=== PATIENT | male | born 1935 | race Caucasian/White ===

== ENCOUNTER → 2018-04-07 | Outpatient (CLI) | payer MEDICARE ==
[2018-04-07 08:27] LABS: ABSOLUTE EOSINOPHILS # (AUTO) 0.1 10^3/uL (0.0-0.6); ABSOLUTE LYMPHOCYTES (AUTO) 1.4 10^3/uL (0.5-4.7); ABSOLUTE MONOCYTES (AUTO) 0.5 10^3/uL (0.1-1.4); ABSOLUTE NEUT (AUTO) 4.4 10^3/uL (1.7-8.2); BASOPHILS % (AUTO) 0.5 % (0-2); HEMOGLOBIN 15.4 g/dL (13.5-17.0); LYMPHOCYTES % (AUTO) 22.2 % (13-45); MEAN CORPUSCULAR HEMOGLOBIN 28.4 pg (27.0-33.4); MEAN CORPUSCULAR HGB CONC 34.3 g/dL (32.0-36.0); MEAN CORPUSCULAR VOLUME 83 fl (80-97); MONOCYTES % (AUTO) 7.6 % (3-13); PLATELET COUNT 152 10^3/uL (150-450); RED BLOOD COUNT 5.44 10^6/uL (4.35-5.55); RED CELL DISTRIBUTION WIDTH 15.5 % (11.5-14.0); SEGMENTED NEUTROPHILS % (AUTO) 67.7 % (42-78); TOTAL CELLS COUNTED % (AUTO) 100 %; WHITE BLOOD COUNT 6.5 10^3/uL (4.0-10.5)
[2018-04-07 08:48] LABS: ALANINE AMINOTRANSFERASE 22 U/L (21-72); ALBUMIN 4.2 g/dL (3.5-5.0); ALKALINE PHOSPHATASE 63 U/L (38-126); ANION GAP 10 (5-19); ASPARTATE AMINO TRANSFERASE 14 U/L (17-59); BILIRUBIN,DIRECT 0.2 mg/dL (0.0-0.4); BILIRUBIN,TOTAL 0.6 mg/dL (0.2-1.3); BLOOD UREA NITROGEN 23 mg/dL (7-20); CALCIUM 9.7 mg/dL (8.4-10.2); CARBON DIOXIDE 30 mmol/L (22-30); CHLORIDE 101 mmol/L (98-107); CHOLESTEROL 215.08 mg/dL (0-200); GLUCOSE 137 mg/dL (75-110); POTASSIUM 4.4 mmol/L (3.6-5.0); SODIUM 141.3 mmol/L (137-145); TRIGLYCERIDES 131 mg/dL (<150)
[2018-04-07 09:00] LABS: DIRECT LDL 156 mg/dL (<100)
== END ==
LOC: OD 07:16
PROVIDERS: ATTEND Internal Medicine
DX: I10 Essential (primary) hypertension (principal); E11.9 Type 2 diabetes mellitus without complications; E78.00 Pure hypercholesterolemia, unspecified; Z79.899 Other long term (current) drug therapy
CPT/HCPCS: 36415; 80053; 80061; 85025

== ENCOUNTER 2018-10-29 16:51 | Emergency (ER) | payer MEDICARE ==
--- NOTE | 2018-10-29 17:11 | ER Document Report ---
ED Medical Screen (RME) - General Chief Complaint: Leg Swelling Stated Complaint: LEFT LEG SWELLING, PAIN Time Seen by Provider: 10/29/18 17:06 Mode of Arrival: Wheelchair Information source: Patient Notes: 83-year-old diabetic male presents emergency department with complaints of left lower leg swelling erythema warmth that started last night. He is not sure if he got bit by something. Denies fever and vomiting. Patient reports it hurts when he walks. I have greeted and performed a rapid initial assessment of this patient. A comprehensive ED assessment and evaluation of the patient, analysis of test results and completion of the medical decision making process will be conducted by additional ED providers. Dictation of this chart was performed using voice recognition software; therefore, there may be some unintended grammatical errors. TRAVEL OUTSIDE OF THE [place] IN LAST 30 DAYS: No - Related Data Allergies/Adverse Reactions: No Known Allergies Allergy (Verified 09/29/14 12:04) Past Medical History - Past Medical History Cardiac Medical History: Reports: Hx Hypertension Endocrine Medical History: Reports: Hx Diabetes Mellitus Type 2 Renal/ Medical History: Reports: Hx Benign Prostatic Hyperplasia Physical Exam - Vital signs Vitals: Temp Pulse Resp BP Pulse Ox 97.8 F 95 18 124/66 97 10/29/18 17:06 10/29/18 17:06 10/29/18 17:06 10/29/18 17:06 10/29/18 17:06 Course - Vital Signs Vital signs: Temp Pulse Resp BP Pulse Ox 97.8 F 95 18 124/66 97 10/29/18 17:06 10/29/18 17:06 10/29/18 17:06 10/29/18 17:06 10/29/18 17:06
[2018-10-29 17:48] LABS: ABSOLUTE EOSINOPHILS # (AUTO) 0.2 10^3/uL (0.0-0.6); BASOPHILS % (AUTO) 0.4 % (0-2); TOTAL CELLS COUNTED % (AUTO) 100 %
[2018-10-29 17:51] LABS: ABSOLUTE LYMPHOCYTES (AUTO) 0.9 10^3/uL (0.5-4.7); ABSOLUTE MONOCYTES (AUTO) 0.8 10^3/uL (0.1-1.4); ABSOLUTE NEUT (AUTO) 7.5 10^3/uL (1.7-8.2); EOSINOPHILS % (AUTO) 1.8 % (0-6); HEMOGLOBIN 14.4 g/dL (13.5-17.0); MEAN CORPUSCULAR HGB CONC 32.8 g/dL (32.0-36.0); MEAN CORPUSCULAR VOLUME 82 fl (80-97); PLATELET COUNT 130 10^3/uL (150-450); RED BLOOD COUNT 5.34 10^6/uL (4.35-5.55); RED CELL DISTRIBUTION WIDTH 16.9 % (11.5-14.0); SEGMENTED NEUTROPHILS % (AUTO) 79.8 % (42-78); WHITE BLOOD COUNT 9.4 10^3/uL (4.0-10.5)
[2018-10-29 17:54] LABS: APPEARANCE,URINE SLIGHTLY-CLOUDY; BILIRUBIN,URINE NEGATIVE (NEGATIVE); COLOR,URINE YELLOW; GLUCOSE, URINE NEGATIVE (NEGATIVE); KETONES,URINE NEGATIVE (NEGATIVE); LEUKOCYTE ESTERASE,URINE MODERATE (NEGATIVE); NITRITE,URINE NEGATIVE (NEGATIVE); PROTEIN,URINE NEGATIVE (NEGATIVE); URINE SPECIFIC GRAVITY 1.026
[2018-10-29 18:08] LABS: ALBUMIN 4.1 g/dL (3.5-5.0); ALKALINE PHOSPHATASE 76 U/L (38-126); ANION GAP 12 (5-19); ASPARTATE AMINO TRANSFERASE 21 U/L (17-59); BILIRUBIN,DIRECT 0.2 mg/dL (0.0-0.4); BILIRUBIN,TOTAL 0.7 mg/dL (0.2-1.3); BLOOD UREA NITROGEN 30 mg/dL (7-20); CALCIUM 9.4 mg/dL (8.4-10.2); CARBON DIOXIDE 27 mmol/L (22-30); CHLORIDE 102 mmol/L (98-107); GLUCOSE 165 mg/dL (75-110); POTASSIUM 3.8 mmol/L (3.6-5.0)
[2018-10-29] MEDS ORDERED: SULFAMETHOXAZOLE/TRIMETHOPRIM 800-160 MG TABLET PO ONE (23:12)
[2018-10-29] MEDS ORDERED: CEPHALEXIN 500 MG CAPSULE PO ONE (23:12)
--- NOTE | 2018-10-29 23:17 | ER Document Report ---
ED Extremity Problem, Lower - General Chief Complaint: Leg Swelling Stated Complaint: LEFT LEG SWELLING, PAIN Time Seen by Provider: 10/29/18 17:06 Mode of Arrival: Wheelchair Notes: RME NOTE: 83-year-old diabetic male presents emergency department with complaints of left lower leg swelling erythema warmth that started last night. He is not sure if he got bit by something. Denies fever and vomiting. Patient reports it hurts when he walks. MY HPI: Patient is a 83-year-old male presents to the emergency department for redness to his left lower anterior leg. Patient's denying any calf pain. He is denying any injury that he knows of. States he noticed the redness this morning. Patient's denying any fevers. Patient also admitting to urinary frequency. States he was treated for urinary tract infection approximately a month ago. States he is seeing a urologist in [place] sometimes next week. Patient's denying any injury or trauma to the left lower extremity. Bilateral lower extremities do appear swollen, pitting edema noted bilaterally, patient's denying any respiratory distress. Patient's denying any chest pain, abdominal pain. TRAVEL OUTSIDE OF THE [place] IN LAST 30 DAYS: No - Related Data Allergies/Adverse Reactions: No Known Allergies Allergy (Verified 09/29/14 12:04) Past Medical History - General Information source: Patient - Social History Smoking Status: Current Every Day Smoker Chew tobacco use (# tins/day): Yes Frequency of alcohol use: None Drug Abuse: None Family History: Other - compression fractures in low back Patient has suicidal ideation: No Patient has homicidal ideation: No - Past Medical History Cardiac Medical History: Reports: Hx Hypertension Endocrine Medical History: Reports: Hx Diabetes Mellitus Type 2 Renal/ Medical History: Reports: Hx Benign Prostatic Hyperplasia Review of Systems - Review of Systems Constitutional: denies: Fever EENT: No symptoms reported Cardiovascular: No symptoms reported Respiratory: No symptoms reported Gastrointestinal: No symptoms reported Genitourinary: No symptoms reported Male Genitourinary: No symptoms reported Musculoskeletal: See HPI Skin: See HPI Hematologic/Lymphatic: No symptoms reported Neurological/Psychological: No symptoms reported Physical Exam - Vital signs Vitals: Temp Pulse Resp BP Pulse Ox 97.8 F 95 18 124/66 97 10/29/18 17:06 10/29/18 17:06 10/29/18 17:06 10/29/18 17:06 10/29/18 17:06 - Notes Notes: GENERAL: Alert, interacts well. No acute distress. HEAD: Normocephalic, atraumatic. EYES: Pupils equal, round, and reactive to light. Extraocular movements intact. ENT: Oral mucosa moist, tongue midline. NECK: Full range of motion. Supple. Trachea midline. LUNGS: Clear to auscultation bilaterally, no wheezes, rales, or rhonchi. No respiratory distress. HEART: Regular rate and rhythm. No murmur ABDOMEN: Soft, non-tender. Non-distended. Bowel sounds present in all 4 quadrants. EXTREMITIES: Moves all 4 extremities spontaneously. normal radial and dorsalis pedis pulses bilaterally. No cyanosis. +1 pitting edema noted bilateral lower extremities to cath. Left anterior lower extremity is erythematous, no obvious fluctuance noted. 2 small scabs noted anterior quezada. no calf pain noted bilaterally. BACK: no cervical, thoracic, lumbar midline tenderness. No saddle anesthesia, normal distal neurovascular exam. NEUROLOGICAL: Alert and oriented x3. Normal speech. cranial nerves II through XII grossly intact PSYCH: Normal affect, normal mood. SKIN: Warm, dry, normal turgor. Course - Re-evaluation Re-evalutation: 10/29/18 23:15 Laboratory 10/29/18 10/29/18 10/29/18 17:28 17:28 17:28 WBC 9.4 RBC 5.34 Hgb 14.4 Hct 44.0 MCV 82 MCH 27.0 MCHC 32.8 RDW 16.9 H Plt Count 130 L Lymph % (Auto) 10.0 L [place] % (Auto) 8.0 Eos % (Auto) 1.8 Baso % (Auto) 0.4 Absolute Neuts (auto) 7.5 Absolute Lymphs (auto) 0.9 Absolute Monos (auto) 0.8 Absolute Eos (auto) 0.2 Absolute Basos (auto) 0.0 Seg Neutrophils % 79.8 H Sodium 140.5 Potassium 3.8 Chloride 102 Carbon Dioxide 27 Anion Gap 12 BUN 30 H Creatinine 0.72 Est GFR ( Amer) > 60 Est GFR (MDRD) Non-Af > 60 Glucose 165 H Calcium 9.4 Total Bilirubin 0.7 Direct Bilirubin 0.2 Neonat Total Bilirubin Not Reportable Neonat Direct Bilirubin Not Reportable Neonat Indirect Bili Not Reportable AST 21 ALT 19 Alkaline Phosphatase 76 Total Protein 7.0 Albumin 4.1 Urine Color YELLOW Urine Appearance SLIGHTLY-CLOUDY Urine pH 5.0 Ur Specific Elbert 1.026 Urine Protein NEGATIVE Urine Glucose (UA) NEGATIVE Urine Ketones NEGATIVE Urine Blood NEGATIVE Urine Nitrite NEGATIVE Urine Bilirubin NEGATIVE Urine Urobilinogen 2.0 H Ur Leukocyte Esterase MODERATE H Urine WBC (Auto) 29 Urine RBC (Auto) 5 Squamous Epi Cells Auto 1 Urine Mucus (Auto) OCC Urine Ascorbic Acid NEGATIVE Patient's urine does show signs of infection, sent for culture. We will treat with Keflex. Will add Bactrim to cover for potential MRSA infection in the left anterior quezada. Discussed close follow-up with primary care provider. Patient voices understanding, stable for discharge. This medical record was dictated with voice recognizing software. There may be grammatical, syntax errors that are unintended. - Vital Signs Vital signs: Temp Pulse Resp BP Pulse Ox 97.8 F 95 18 124/66 97 10/29/18 17:06 10/29/18 17:06 10/29/18 17:06 10/29/18 17:06 10/29/18 17:06 - Laboratory Result Diagrams: 10/29/18 17:28 10/29/18 17:28 Laboratory results interpreted by me: 10/29/18 10/29/18 10/29/18 17:28 17:28 17:28 RDW 16.9 H Plt Count 130 L Lymph % (Auto) 10.0 L Seg Neutrophils % 79.8 H BUN 30 H Glucose 165 H Urine Urobilinogen 2.0 H Ur Leukocyte Esterase MODERATE H Discharge - Discharge Clinical Impression: Urinary tract infection Qualifiers: Urinary tract infection type: acute cystitis Hematuria presence: without he maturia Qualified Code(s): N30.00 - Acute cystitis without hematuria Cellulitis Qualifiers: Site of cellulitis: extremity Site of cellulitis of extremity: lower extremity Laterality: left Qualified Code(s): L03.116 - Cellulitis of left lower limb Condition: Stable Disposition: HOME, SELF-CARE Instructions: Urinary Tract Infection ([facility]), Cephalexin ([facility]), Trimethoprim-S ulfa ([facility]), Cellulitis ([facility]) Additional Instructions: As we discussed you have been seen and treated in the emergency department for a skin infection in your left lower extremity. Please make sure you are taking antibiotics as prescribed. These antibiotics will also help treat a urinary tract infection. Please make sure you continue to follow-up with your urologist in [place] as well as your primary care provider locally. Please return to the emergency room for any further concerns. Prescriptions: Sulfamethoxazole/Trimethoprim [Bactrim Ds Tablet] 1 each PO BID 7 Days #14 tablet Cephalexin Monohydrate [Keflex 500 mg Capsule] 500 mg PO BID 7 Days #14 capsule
[2018-10-29 23:28] VITALS: BP 118/75
== END 2018-10-29 23:30 | disposition home or self-care (01) ==
LOC: ER 16:51
DX: L03.116 Cellulitis of left lower limb (principal); N30.00 Acute cystitis without hematuria; R60.0 Localized edema; E11.9 Type 2 diabetes mellitus without complications; I10 Essential (primary) hypertension; F17.200 Nicotine dependence, unspecified, uncomplicated
CPT/HCPCS: 36415; 87040; 87086; 85025; 80053; 81001; A9270 ×2; 99283

== ENCOUNTER → 2019-02-27 | Outpatient (CLI) | payer MEDICARE ==
--- NOTE | 2019-02-28 15:52 | XCELERA REPORT ---
[address] [address] Lower Extremity Arterial Evaluation Name: KAEL PAREDES Age: 84 yrs Gender: Male : 1935 Patient Status: Outpatient Patient Location: [facility] Study Date: 02/27/2019 02:57 PM Procedure: A color flow and duplex scan of the lower extremity arteries was performed bilaterally with velocity and waveform anaylsis. Ankle brachial indicies performed. Reason For Study: LT CALF ULCER Ordering Physician: DANNY FISCHER Performed By: Alex Tomas Measurements and Calculations Right Left SECURITY REP PSV 109.4 169.9 cm/sec Prox PFA PSV -107.5 -113.8cm/sec Prox SFA PSV 132.7 132.0 cm/sec Mid SFA PSV -87.7 -132.6cm/sec Dist SFA PSV -120.2 -112.5cm/sec Prox Pop A PSV 60.3 85.4 cm/sec Dist Pop A PSV -103.1 -108.7cm/sec Prox NATA PSV 99.7 cm/sec Mid NATA PSV 27.7 -44.1 cm/sec Dist NATA PSV 21.8 cm/sec Dist SALES SUPPORT ADVISOR PSV 108.1 122.6 cm/sec Dylan Pedis PSV 21.8 32.6 cm/sec Right Side Arterial Evaluation Normal velocity and triphasic waveforms noted from the Common Femoral artery to the Proximal Femoral. Biphasic with normal velocity in the Posterior Tibial. Monophasic with low velcotiy in the Anterior Tibial. Ankle Brachial index 1.17. Left Side Arterial Evaluation Normal velocity and triphasic waveforms noted from the Common Femoral artery to the Proximal Femoral. Biphasic with normal velocity, moderate spectral broadening in the Posterior Tibial. Monophasic with low velocity, retrograde flow in the Anterior Tibial. Ankle Brachial index 1.17. Interpretation Summary Mild hemodynamically significant lesions in the bilateral lower extremities, on duplex imaging, at rest. 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 Bilaterally. KEVYN's are normal, suggesting no significant arterial disease. This is discordant with the duplex findings. : DANNY FISCHER > Joshua Carreon
== END ==
LOC: SP 14:03
PROVIDERS: ATTEND Nurse Practitioner Family
DX: L97.212 Non-pressure chronic ulcer of right calf with fat layer exposed (principal); L97.222 Non-pressure chronic ulcer of left calf with fat layer exposed
CPT/HCPCS: 93922; 93925

== ENCOUNTER 2019-03-24 15:08 | Emergency (ER) | payer MEDICARE ==
--- NOTE | 2019-03-24 15:37 | ER Document Report ---
ED Medical Screen (RME) - General Chief Complaint: General Weakness Stated Complaint: WEAKNESS Time Seen by Provider: 03/24/19 15:25 Primary Care Provider: DANNY FISCHER TEST EXAMINER, TEST EXAMINER [Primary Care Provider] - Follow up as needed TRAVEL OUTSIDE OF THE [place] IN LAST 30 DAYS: No - HPI Notes: 03/24/19 15:36 Patient is an 84-year-old male with chronic medical conditions and currently being treated for leg wounds with a catheter in place presents with with concern of ongoing/worsening weakness over the past several months. states that his speech has changed and has become more slurred over the past month and patient will become more confused. Currently, patient is at baseline was mentation, but the speech has been relatively constant for the past month. states that it is hard to understand him at times. Denies drug allergies. He has been recently evaluated by his family doctor as well. No fever, chest pain, abdominal pain, vomiting/diarrhea. I have treated and performed a rapid initial assessment of this patient. A comprehensive ED assessment and evaluation of the patient, analysis of test results and completion of medical decision making process will be conducted by additional ED providers. PHYSICAL EXAMINATION: GENERAL: Well-appearing, well-nourished and in no acute distress. A&Ox4. Answers questions appropriately. Neuro: There is some noted slurred speech and difficulty understanding his speech. Otherwise face is symmetric, PERRLA, EOMI bilaterally. Motor and sensory intact otherwise. Strength equal bilaterally. - Related Data Allergies/Adverse Reactions: No Known Allergies Allergy (Verified 03/24/19 15:25) Past Medical History - Past Medical History Cardiac Medical History: Reports: Hx Hypertension Endocrine Medical History: Reports: Hx Diabetes Mellitus Type 2 Renal/ Medical History: Reports: Hx Benign Prostatic Hyperplasia Physical Exam - Vital signs Vitals: Temp Pulse Resp BP Pulse Ox 97.7 F 92 18 129/72 H 93 03/24/19 15:24 03/24/19 15:24 03/24/19 15:24 03/24/19 15:24 03/24/19 15:24 Course - Vital Signs Vital signs: Temp Pulse Resp BP Pulse Ox 97.7 F 92 18 129/72 H 93 03/24/19 15:24 03/24/19 15:24 03/24/19 15:24 03/24/19 15:24 03/24/19 15:24 Doctor's Discharge - Discharge Referrals: DANNY FISCHER TEST EXAMINER, TEST EXAMINER [Primary Care Provider] - Follow up as needed
--- NOTE | 2019-03-24 16:23 | RADIOLOGY REPORT (SQ) ---
EXAM DESCRIPTION: CHEST 2 VIEWS COMPLETED DATE/TIME: 03/24/2019 3:56 pm REASON FOR STUDY: weakness COMPARISON: None. EXAM PARAMETERS: NUMBER OF VIEWS: Two views. TECHNIQUE: AP and lateral views of the chest were obtained. RADIATION DOSE: NA LIMITATIONS: none FINDINGS: LUNGS AND PLEURA: Low inspiratory lung volumes. The costophrenic sulci are blunted. Ther e is no consolidation or pneumothorax. MEDIASTINUM AND HILAR STRUCTURES: No mediastinal or hilar contour abnormality. HEART AND VASCULAR STRUCTURES: The cardiac silhouette is enlarged. BONES: No acute findings. HARDWARE: None in the chest. OTHER: No other finding. IMPRESSION: Cardiomegaly without pulmonary edema. The blunting of the costophrenic sulci could repr esent trace bilateral pleural effusions or chronic pleural thickening. TECHNICAL DOCUMENTATION: JOB ID: [id number] 2010 [employer]- All Rights Reserved Reading location - IP/workstation name: [email or web address]
--- NOTE | 2019-03-24 16:27 | RADIOLOGY REPORT (SQ) ---
EXAM DESCRIPTION: CT HEAD WITHOUT COMPLETED DATE/TIME: 03/24/2019 4:09 pm REASON FOR STUDY: changes in speech, weakness COMPARISON: None. TECHNIQUE: Axial images acquired through the brain without intravenous contrast. Images reviewed wi th bone, brain and subdural windows. Additional sagittal and coronal reconstructions were generated. Images stored on PACS. All CT scanners at this facility use dose modulation, iterative reconstruction, and/or weight based d osing when appropriate to reduce radiation dose to as low as reasonably achievable (ALARA). [facility]: Dose Right [facility]: CareDose [facility]: Dose Right [facility]: Teradose 4D [facility]: Pogoplug RADIATION DOSE: CT Rad equipment meets quality standard of care and radiation dose reduction techniq ues were employed. CTDIvol: 53.2 mGy. DLP: 1017 mGy-cm. LIMITATIONS: None. FINDINGS: There is diffuse age-appropriate cerebral and cerebellar volume loss. The caliber the concepción tricles is concordant with the degree of sulcation. The confluent areas of hypoattenuation within th e supratentorial periventricular and subcortical white matter could represent the sequela of chronic microvascular ischemia. There is no acute intracranial hemorrhage, vascular territorial infarct, ext ra-axial fluid collection, mass effect or midline shift. There is no effacement of the cerebral sulc i or basal subarachnoid cisterns. The hayes-white matter differentiation is preserved. The globes are aphakic. The orbits are intact. There is a probable mucous retention cyst within the left maxillary sinus. There is no calvarial fracture. IMPRESSION: No acute intracranial abnormality. EVIDENCE OF ACUTE STROKE: NO. COMMENT: Quality ID # [id number]: Final reports with documentation of one or more dose reduction techniques (e.g., Automated exposure control, adjustment of the mA and/or kV according to patient size, use of iterative reconstruction technique) TECHNICAL DOCUMENTATION: JOB ID: [id number] 2010 [employer]- All Rights Reserved Reading location - IP/workstation name: [email or web address]
[2019-03-24 16:51] LABS: ABSOLUTE EOSINOPHILS # (AUTO) 0.1 10^3/uL (0.0-0.6); ABSOLUTE MONOCYTES (AUTO) 0.9 10^3/uL (0.1-1.4); BASOPHILS % (AUTO) 0.5 % (0-2); HEMOGLOBIN 13.4 g/dL (13.5-17.0); MEAN CORPUSCULAR HEMOGLOBIN 28.1 pg (27.0-33.4); TOTAL CELLS COUNTED % (AUTO) 100 %
[2019-03-24 16:58] LABS: ABSOLUTE BASOPHILS # (AUTO) 0.1 10^3/uL (0.0-0.2); ABSOLUTE NEUT (AUTO) 7.9 10^3/uL (1.7-8.2); EOSINOPHILS % (AUTO) 1.4 % (0-6); HEMATOCRIT 40.8 % (37.9-51.0); LYMPHOCYTES % (AUTO) 9.7 % (13-45); MEAN CORPUSCULAR HGB CONC 32.8 g/dL (32.0-36.0); MEAN CORPUSCULAR VOLUME 86 fl (80-97); MONOCYTES % (AUTO) 9.2 % (3-13); PLATELET COUNT 254 10^3/uL (150-450); RED BLOOD COUNT 4.76 10^6/uL (4.35-5.55); RED CELL DISTRIBUTION WIDTH 16.8 % (11.5-14.0); SEGMENTED NEUTROPHILS % (AUTO) 79.2 % (42-78); WHITE BLOOD COUNT 9.9 10^3/uL (4.0-10.5)
[2019-03-24 17:10] LABS: ALBUMIN 3.8 g/dL (3.5-5.0); ALKALINE PHOSPHATASE 111 U/L (38-126); ANION GAP 11 (5-19); ASPARTATE AMINO TRANSFERASE 17 U/L (17-59); BILIRUBIN,DIRECT 0.6 mg/dL (0.0-0.4); BILIRUBIN,TOTAL 0.9 mg/dL (0.2-1.3); BLOOD UREA NITROGEN 41 mg/dL (7-20); CALCIUM 9.6 mg/dL (8.4-10.2); CARBON DIOXIDE 32 mmol/L (22-30); CHLORIDE 100 mmol/L (98-107); GLUCOSE 152 mg/dL (75-110); POTASSIUM 3.8 mmol/L (3.6-5.0); TOTAL PROTEIN 7.3 g/dL (6.3-8.2)
--- NOTE | 2019-03-24 20:25 | EKG REPORT ---
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
[2019-03-24 21:35] LABS: APPEARANCE,URINE CLOUDY; BILIRUBIN,URINE NEGATIVE (NEGATIVE); COLOR,URINE YELLOW; GLUCOSE, URINE NEGATIVE (NEGATIVE); KETONES,URINE 20 mg/dL (NEGATIVE); PROTEIN,URINE 100 mg/dL (NEGATIVE); TRIPLE PHOSPHATE CRYSTAL,URINE FEW /HPF; UROBILINOGEN,URINE NEGATIVE mg/dL (<2.0)
[2019-03-24] MEDS ORDERED: LEVOFLOXACIN 750 MG/D5W RTU 750 MG/150 ML RTUPB IV ONE (21:47)
--- NOTE | 2019-03-24 21:47 | ER Document Report ---
Entered by ABHILASH AMADOR SCRIBE 03/24/192112 Acting as scribe for:KAEL THORPE IV, MD ED Dizziness/Weakness - General Chief Complaint: General Weakness Stated Complaint: WEAKNESS Time Seen by Provider: 03/24/19 15:25 Primary Care Provider: DANNY FISCHER NP, DEVELOPMENT ANALYST [Primary Care Provider] - Follow up as needed Information source: Relative - Notes: This 84 year old male patient with a history of chronic medical conditions presents to the ED today with complaints of generalized weakness and increased shortness of breath with exertion for the past x3 months. at bedside states the patient has been sleeping all the time and would sit on the edge of the r ecliner with a look of confusion on his face. also reports slurred speech and that it is difficult to understand him at times. Patient is currently being treated for leg wounds and has a catheter in place. Patient denies fever, chest pain, abdominal pain, vomiting, or diarrhea. TRAVEL OUTSIDE OF THE [place] IN LAST 30 DAYS: No - Related Data Allergies/Adverse Reactions: No Known Allergies Allergy (Verified 03/24/19 15:25) Past Medical History - General Information source: Relative - , [facility] Records - Social History Smoking Status: Current Every Day Smoker Cigarette use (# per day): Yes Chew tobacco use (# tins/day): No Smoking Education Provided: No Family History: Reviewed & Not Pertinent, Other - compression fractures in low back Patient has suicidal ideation: No Patient has homicidal ideation: No - Past Medical History Cardiac Medical History: Reports: Hx Hypertension Endocrine Medical History: Reports: Hx Diabetes Mellitus Type 2 Renal/ Medical History: Reports: Hx Benign Prostatic Hyperplasia Review of Systems - Review of Systems Constitutional: See HPI, Weakness. denies: Fever EENT: No symptoms reported Cardiovascular: See HPI. denies: Chest pain Respiratory: See HPI, Short of breath Gastrointestinal: See HPI. denies: Abdominal pain, Diarrhea, Vomiting Genitourinary: No symptoms reported Male Genitourinary: No symptoms reported Musculoskeletal: No symptoms reported Skin: No symptoms reported Hematologic/Lymphatic: No symptoms reported Neurological/Psychological: See HPI, Confusion -: Yes All other systems reviewed and negative Physical Exam - Vital signs Vitals: Temp Pulse Resp BP Pulse Ox 97.7 F 92 18 129/72 H 93 03/24/19 15:24 03/24/19 15:24 03/24/19 15:24 03/24/19 15:24 03/24/19 15:24 - General General appearance: Alert - HEENT Head: Normocephalic, Atraumatic Eyes: Normal Pupils: PERRL - Respiratory Respiratory status: Tachypnea Chest status: Nontender Breath sounds: Normal Chest palpation: Normal - Cardiovascular Rhythm: Regular Heart sounds: Normal auscultation Murmur: No - Abdominal Inspection: Normal Distension: No distension Bowel sounds: Normal Tenderness: Nontender - Abdomen soft Organomegaly: No organomegaly - Back Back: Normal, Nontender - Extremities General upper extremity: Normal inspection General lower extremity: Normal inspection - Neurological Neuro grossly intact: Yes - Psychological Associated symptoms: Normal affect, Normal mood - Skin Skin Temperature: Warm Skin Moisture: Dry Skin Color: Normal Course - Re-evaluation Re-evalutation: 03/24/19 22:40 Results of ED MSE discussed with patient and patient's significant other. All questions were answered prior to discharge. Emergency signs and symptoms, reasons to return to the emergency department discussed with patient and patient's significant other. - Vital Signs Vital signs: Temp Pulse Resp BP Pulse Ox 97.7 F 92 18 129/72 H 93 03/24/19 15:24 03/24/19 15:24 03/24/19 15:24 03/24/19 15:24 03/24/19 15:24 - Laboratory Result Diagrams: 03/24/19 14:29 03/24/19 14:29 Laboratory results interpreted by me: 03/24/19 03/24/19 03/24/19 14:29 14:29 14:29 Hgb 13.4 L RDW 16.8 H Lymph % (Auto) 9.7 L Seg Neutrophils % 79.2 H Carbon Dioxide 32 H BUN 41 H Glucose 152 H Direct Bilirubin 0.6 H NT-Pro-B Natriuret Pep 2150 H Urine Protein Urine Ketones Urine Blood Urine Nitrite (Reflex) Leukocyte Esterase Rfl 03/24/19 21:07 Hgb RDW Lymph % (Auto) Seg Neutrophils % Carbon Dioxide BUN Glucose Direct Bilirubin NT-Pro-B Natriuret Pep Urine Protein 100 H Urine Ketones 20 H Urine Blood SMALL H Urine Nitrite (Reflex) POSITIVE H Leukocyte Esterase Rfl LARGE H - EKG Interpretation by Me Additional EKG results interpreted by me: 03/24/19 22:41 EKG obtained on 03/24/2019 at 1620 hrs. was interpreted by this MD. Findings: Patient has a irregularly irregular rhythm that appears to be rate controlled. Rate is 99. Right bundle branch block is present. ST segments are nonspecific. Impression atrial fibrillation with controlled rate and nonspecific ST segments Discharge - Discharge Clinical Impression: UTI (urinary tract infection) due to urinary indwelling Baca catheter Qualifiers: Indwelling urinary catheter type: indwelling urethral catheter Encounter type: initial encounter Qualified Code(s): T83.511A - Infection and inflammatory reaction due to indwelling urethral catheter, initial encounter; N39.0 - Urinary tract infection, site not specified Condition: Good Disposition: HOME, SELF-CARE Instructions: Urinary Tract Infection ([facility]) Additional Instructions: Return to the Emergency Department without delay if any worse. HOME CARE INSTRUCTIONS & INFORMATION: Thank you for choosing us for your medical needs. We hope you're satisfied with the care you received. After you leave, you must properly care for your problem and, at the same time, observe its progress. Any condition can change. Some illnesses can change rapidly over hours or days. If your condition worsens, return to the Emergency Department or see your physician promptly. ABOUT YOUR X-RAYS AND EKG'S: If you had an EKG or X-rays taken, they have been read by the Emergency Physician. The X-rays and EKG's will also be read by a Radiologist or Technology Analyst within 24 hours. If discrepancies are noted, you will be notified by telephone. Please be certain the ED has a correct telephone number & address where you can be reached. Also, realize that some fractures or abnormalities do not show up on initial X-rays. If your symptoms continue, see your physician. ABOUT YOUR LABORATORY TEST: If you had laboratory tests, the results have been reviewed by the Emergency Physician. Some test results (for example cultures) may not be available for several days. You will be contacted if any test result shows you need additional treatment. Please be certain the ED has a correct telephone number and address where you can be reached. ABOUT YOUR MEDICATIONS: You will receive instructions on how to take your medicine on the prescription label you receive. Additional information may be provided by the Pharmacy. If you have questions afterwards, call the ED for clarification or further instructions. Some prescribed medications may cause drowsiness. Do not perform tasks such as driving a car or operating machinery without consulting your Pharmacist. If you feel you need a refill of pain medication, your condition will need re-evaluation. Please do not call for a refill of any medication. ABOUT YOUR SIGNATURE: Signature of this document acknowledges to followin. Understanding that you received emergency treatment and that you may be released before al medical problems are known or treated. Please be certain the ED has a correct phone number & address where you can be reached. 2. Acknowledgement that you will arrange for follow-up care as recommended. 3. Authorization for the Emergency Physician to provide information to your follow-up Physician in order to maximize your care. AT ANY TIME, IF YOUR SYMPTOMS CHANGE SIGNIFICANTLY OR WORSEN OR YOU DEVELOP NEW SYMPTOMS, RETURN TO THE EMERGENCY DEPARTMENT IMMEDIATELY FOR RE-EVALUATION. OUR GOAL IS TO PROVIDE EXCELLENT MEDICAL CARE! WE HOPE THAT WE HAVE MET YOUR EXPECTATIONS DURING YOUR EMERGENCY DEPARTMENT VISIT AND THAT YOU FEEL YOU HAVE RECEIVED EXCELLENT CARE! Urinary Tract Infection Your evaluation indicates that you have a urinary tract infection. This is due to germs growing in the bladder. This is a common problem. This infection usually responds quickly to antibiotics. Your antibiotic should be taken exactly as prescribed. Drink plenty of fluids -- three to four quarts a day. Occasionally, a bladder anesthetic will be prescribed to help stop the feeling of urgency until the antibiotic has a chance to clear the infection. This may cause your urine to be dark orange. Certain urine infections require a culture. If the doctor obtained a culture, the results will be back in two days. You should call to see if a change in treatment is needed. A repeat urinalysis after you finish treatment is often recommended. The physician will let you know if further testing is required. Call the doctor if you develop fever, chills, flank pain, inability to urinate, or blood in the urine. Prescriptions: Levofloxacin [Levaquin 750 mg Tablet] 750 mg PO DAILY #4 tablet Referrals: DANNY FISCHER DEVELOPMENT ANALYST, DEVELOPMENT ANALYST [Primary Care Provider] - Follow up as needed I personally performed the services described in the documentation, reviewed and edited the documentation which was dictated to the scribe in my presence, and it accurately records my words and actions.
[2019-03-25 00:10] VITALS: BP 136/99
== END 2019-03-25 00:05 | disposition home or self-care (01) ==
LOC: ER 15:08
DX: T83.511A Infection and inflammatory reaction due to indwelling urethral catheter, initial encounter (principal); N39.0 Urinary tract infection, site not specified; Y84.6 Urinary catheterization as the cause of abnormal reaction of the patient, or of later complication, without mention of misadventure at the time of the procedure; R53.1 Weakness; F17.210 Nicotine dependence, cigarettes, uncomplicated; I10 Essential (primary) hypertension; E11.9 Type 2 diabetes mellitus without complications
CPT/HCPCS: 93005; 36415; 87086; 85025; 87088; 80053; 81001; 83880; 71046; 70450; 93010; J1956; 87186; 96365; 99284

== ENCOUNTER 2019-03-28 11:32 | Inpatient (IN) | payer MEDICARE ==
[2019-03-28] MEDS ORDERED: IPRATROPIUM/ALBUTEROL 0.5-2.5 MG/3 ML AMPUL NEB ONE (11:59)
--- NOTE | 2019-03-28 12:08 | ER Document Report ---
ED General - General Stated Complaint: ALTERED MENTAL STATUS Time Seen by Provider: 03/28/19 11:52 Primary Care Provider: DANNY FISCHER ENVIRONMENTAL STUDIES DEPARTMENT CHAIR, ENVIRONMENTAL STUDIES DEPARTMENT CHAIR [Primary Care Provider] - Follow up as needed Mode of Arrival: Medic Information source: Patient, Relative Cannot obtain history due to: Altered mental status TRAVEL OUTSIDE OF THE [place] IN LAST 30 DAYS: No - HPI Onset: Other - over the last 3 days Onset/Duration: Gradual Quality of pain: No pain Severity: Severe Pain Level: 0 Associated symptoms: Nonproductive cough, Shortness of breath, Weakness, Other - altered mental status Exacerbated by: Coughing, Deep breathing Relieved by: Denies Similar symptoms previously: No Recently seen / treated by doctor: Yes - Patient seen on 03/24/19 and diagnosed with a a UTI Notes: 84 year old male with a history of HTN, HLD, DM, GERD, Chronic Pain, Chronic Leg Wounds, BPH (has an indwelling Baca - last changed of month) brought in by EMS for altered mental status, shortness of breath, cough, hypoxia. The patient was noted to have chewing tobacco in his mouth and down his throat when EMS arrived. EMS removed some of the chewing tobacco prior to ER arrival but more was removed down here in the ER by nurse staffing. The patient was minimally responsive on ER arrival and became more responsive as his airway was cleared and suctioned by nursing. - Related Data Allergies/Adverse Reactions: No Known Allergies Allergy (Verified 03/28/19 12:53) Past Medical History - General Information source: Patient, Relative Cannot obtain history due to: Altered mental status - Social History Smoking Status: Current Every Day Smoker Chew tobacco use (# tins/day): Yes Frequency of alcohol use: Occasional Drug Abuse: None Lives with: Spouse/Significant other Family History: Reviewed & Not Pertinent, Other - compression fractures in low back Patient has suicidal ideation: No Patient has homicidal ideation: No - Past Medical History Cardiac Medical History: Reports: Hx Hypertension Endocrine Medical History: Reports: Hx Diabetes Mellitus Type 2 Renal/ Medical History: Reports: Hx Benign Prostatic Hyperplasia Review of Systems - Review of Systems Constitutional: Weakness, Recent illness - patient diagnosed with a UTI in 03/24/19 EENT: No symptoms reported Cardiovascular: No symptoms reported Respiratory: Short of breath, Wheezing Gastrointestinal: No symptoms reported Genitourinary: Other - patient has thick yellow fluid coming from his Baca Male Genitourinary: No symptoms reported Musculoskeletal: No symptoms reported Skin: Other - skin breakdown in groin region Hematologic/Lymphatic: No symptoms reported Neurological/Psychological: Other - altered mental status -: Yes All other systems reviewed and negative Physical Exam - Vital signs Vitals: Pulse Ox 93 03/28/19 11:36 - Notes Notes: GENERAL: Ill appearing, minimally responsive with increased work of breathing. HEAD: Atraumatic, normocephalic. EYES: Pupils equal round and reactive to light, extraocular movements intact, sclera anicteric, conjunctiva with bilateral purulent discharge ENT: Nares patent, oropharynx filled with chewing tobacco thick secreation. Overall his mouth looks rather dry however NECK: Normal range of motion, supple without lymphadenopathy or JVD. LUNGS: Decreased breath sounds on left. Normal breath sounds on right. No wheezes rales or rhonchi. HEART: Tachycardic normal rhythm without murmurs, rubs or gallops. ABDOMEN: Soft, nontender, normoactive bowel sounds. No guarding, no rebound. No masses appreciated. EXTREMITIES: Normal range of motion, no pitting or edema. No clubbing or cyanosis. NEUROLOGICAL: Patient is minimally responsive (only responds to painful stimuli). Patient can move all extremities. Patient can speak a few words when asked certain questions. PSYCH: Normal mood, normal affect. SKIN: Skin appears modeled and dry Course - Re-evaluation Re-evalutation: 03/28/19 12:25 The patient clearly aspirated on chewing tobacco and possibly his own thick secretions. Nursing removed as much chewing tobacco as they could and they also suctioned the patient. Patient's Sats came up with suctioning and patient became more repsonsive. Will hold off on Bipaping for now given he is more awake and less hypoxic. Dr. Goldman of the ICU was consulted due to the concern the patient may need an emergent Bronch. Dr. Glodman will see the patient in the ER. Patient has thick purulent urine in his. Will replace Baca to obtain a new sample for a UA and culture, will obtain blood cultures, and will empirically treat with Zosyn and Vanc to cover aspiration and UTI pathogens 03/28/19 13:56 The patient was found to have respiratory failure with hypercapnia. ICU attending requested the patient be intubated before admission since he will need an emergent Bronch and he would like to Bronch through the ET tube. Patient was therefore intubated at the bedside by me. Patient had thick secretions in his mouth and pieces of chewing tobacco which I suctioned out. Patient had an 8.0 ET tube placed by me and on the first attempt. Suctioning through the ET tube and with a lavage returned more thick secretions and chewing tobacco. Patient's BP dropped during intubation so 1L of NS was ordered. Patient still has not prodcued enough urine from his new Baca for a UA and Urine Culture but based on his previous Baca and Urine in the bag he no doubt will like like he has a UTI again. Patient had a urine culture from his last ER visit which grew out nearly muhammad sensitive organisms. - Vital Signs Vital signs: Temp Pulse Resp BP Pulse Ox 99.6 F 43 H 129/84 H 94 03/28/19 12:00 03/28/19 12:07 03/28/19 12:07 03/28/19 12:07 - Laboratory Result Diagrams: 03/28/19 11:45 03/28/19 11:45 Laboratory results interpreted by me: 03/28/19 03/28/19 03/28/19 11:45 11:45 11:45 WBC 11.8 H RDW 17.8 H Lymph % (Auto) 6.9 L Absolute Neuts (auto) 10.3 H Seg Neutrophils % 87.5 H PT 16.8 H Carbonic Acid ABG pH ABG pCO2 ABG pO2 ABG HCO3 ABG Total CO2 ABG O2 Saturation Sodium 147.6 H Carbon Dioxide 37 H BUN 49 H Glucose 184 H POC Glucose NT-Pro-B Natriuret Pep 03/28/19 03/28/19 03/28/19 11:45 12:15 12:57 WBC RDW Lymph % (Auto) Absolute Neuts (auto) Seg Neutrophils % PT Carbonic Acid 2.68 H ABG pH 7.23 L ABG pCO2 89.1 H* ABG pO2 70.8 L ABG HCO3 36.6 H ABG Total CO2 39.3 H ABG O2 Saturation 90.1 L Sodium Carbon Dioxide BUN Glucose POC Glucose 180 H NT-Pro-B Natriuret Pep 3830 H - Diagnostic Test Radiology reviewed: Image reviewed, Reports reviewed - EKG Interpretation by Me Rhythm: A.Fib [place]/QRS: Left axis deviation When compared to previous EKG there are: No significant change, Other - PVCs noted Procedures - Intubation Orotracheal Airway evaluation: Normal anatomy Mallampati Classification: Class 2 Medications: Etomidate, Succinylcholine Intubation method: Orotracheal Equipment used: Glidescope ETT size: 8.0 ETT secured at: Lips ETT secured at (cm): 24 Breath Sounds after Intubation: Equal End tidal CO2 confirmed: Yes Intubation Complications: No complications Critical Care Note - Critical Care Note Total time excluding time spent on procedures (mins): 52 Discharge - Discharge Clinical Impression: Acute respiratory failure with hypoxia and hypercarbia Aspiration into airway Qualifiers: Encounter type: initial encounter Qualified Code(s): T17.908A - Unspecified foreign body in respiratory tract, part unspecified causing other injury, initial encounter UTI (urinary tract infection) Qualifiers: Urinary tract infection type: site unspecified Hematuria presence: without hematuria Qualified Code(s): N39.0 - Urinary tract infection, site not specified Condition: Critical Disposition: ADMITTED INPATIENT Admitting Provider: Susi (Disability Services Coordinator) Unit Admitted: ICU Referrals: DANNY FISCHER ENVIRONMENTAL STUDIES DEPARTMENT CHAIR, ENVIRONMENTAL STUDIES DEPARTMENT CHAIR [Primary Care Provider] - Follow up as needed
[2019-03-28] MEDS ORDERED: PIPERACILLIN/TAZOBACTAM 3.375 GM VIAL IV ONE (12:18)
[2019-03-28] MEDS ORDERED: VANCOMYCIN HCL INJ 1000 MG VIAL IV ONE (12:18)
[2019-03-28 12:20] LABS: INTERNATIONAL RATION (INR) 1.35; PROTHROMBIN TIME 16.8 SEC (11.4-15.4)
[2019-03-28 12:22] LABS: ABSOLUTE LYMPHOCYTES (AUTO) 0.8 10^3/uL (0.5-4.7); ABSOLUTE MONOCYTES (AUTO) 0.6 10^3/uL (0.1-1.4); ABSOLUTE NEUT (AUTO) 10.3 10^3/uL (1.7-8.2); BASOPHILS % (AUTO) 0.3 % (0-2); HEMATOCRIT 46.3 % (37.9-51.0); LYMPHOCYTES % (AUTO) 6.9 % (13-45); MEAN CORPUSCULAR HEMOGLOBIN 28.2 pg (27.0-33.4); MEAN CORPUSCULAR HGB CONC 32.3 g/dL (32.0-36.0); MEAN CORPUSCULAR VOLUME 87 fl (80-97); MONOCYTES % (AUTO) 5.3 % (3-13); PLATELET COUNT 358 10^3/uL (150-450); RED CELL DISTRIBUTION WIDTH 17.8 % (11.5-14.0); SEGMENTED NEUTROPHILS % (AUTO) 87.5 % (42-78); TOTAL CELLS COUNTED % (AUTO) 100 %; WHITE BLOOD COUNT 11.8 10^3/uL (4.0-10.5)
[2019-03-28 12:33] LABS: ALBUMIN 3.9 g/dL (3.5-5.0); ALKALINE PHOSPHATASE 107 U/L (38-126); ANION GAP 10 (5-19); ASPARTATE AMINO TRANSFERASE 21 U/L (17-59); BILIRUBIN,DIRECT 0.4 mg/dL (0.0-0.4); BILIRUBIN,TOTAL 0.8 mg/dL (0.2-1.3); BLOOD UREA NITROGEN 49 mg/dL (7-20); CALCIUM 9.8 mg/dL (8.4-10.2); CARBON DIOXIDE 37 mmol/L (22-30); CHLORIDE 101 mmol/L (98-107); GLUCOSE 184 mg/dL (75-110); POTASSIUM 4.1 mmol/L (3.6-5.0); TOTAL PROTEIN 7.5 g/dL (6.3-8.2)
[2019-03-28 12:57] LABS: ARTERIAL BLOOD BASE EXCESS 5.4 mmol/L; ARTERIAL BLOOD FIO2 15L; ARTERIAL BLOOD H2CO3 2.68 mmol/L (1.05-1.35); ARTERIAL BLOOD HCO3 36.6 mmol/L (20-24); ARTERIAL BLOOD O2 SATURATION 90.1 % (94-98); ARTERIAL BLOOD PH 7.23 (7.35-7.45); ARTERIAL BLOOD PO2 70.8 mmHg (80-100); ARTERIAL BLOOD TOTAL CO2 39.3 mmol/L (23-27)
[2019-03-28] MEDS ORDERED: SUCCINYLCHOLINE CHLORIDE INJ 200 MG/10 ML VIAL ONE (13:00)
[2019-03-28 13:03] LABS: ARTERIAL BLOOD PCO2 89.1 mmHg (35-45)
--- NOTE | 2019-03-28 13:06 | RADIOLOGY REPORT (SQ) ---
EXAM DESCRIPTION: CHEST SINGLE VIEW COMPLETED DATE/TIME: 03/28/2019 12:20 pm REASON FOR STUDY: bed 19 sepsis protocol COMPARISON: 03/24/2019 EXAM PARAMETERS: NUMBER OF VIEWS: One view. TECHNIQUE: Single frontal radiographic view of the chest acquired. RADIATION DOSE: NA LIMITATIONS: None. FINDINGS: LUNGS AND PLEURA: There is no dense consolidation throughout the left lower lobe with trac e left pleural fluid. Findings are worrisome for pneumonia. Aspiration should be considered. Right lung grossly clear. No right pleural effusion. No right or left pneumothorax MEDIASTINUM AND HILAR STRUCTURES: No masses. Contour normal. HEART AND VASCULAR STRUCTURES: Stable massive cardiomegaly BONES: No acute findings. HARDWARE: None in the chest. OTHER: No other significant finding. IMPRESSION: Left lower lobe pneumonia. Possible trace left pleural effusion. Aspiration should be considered TECHNICAL DOCUMENTATION: JOB ID: [id number] 2010 [employer]- All Rights Reserved Reading location - IP/workstation name: [email or web address]
[2019-03-28] MEDS ORDERED: SUCCINYLCHOLINE CHLORIDE INJ 200 MG/10 ML VIAL IV ONE (13:26)
[2019-03-28] MEDS ORDERED: ETOMIDATE INJ/PF 20 MG/10 ML SDV IV ONE (13:26)
[2019-03-28] MEDS ORDERED: PROPOFOL 1,000 MG/100 ML INFUS..BTL IV PRN (13:37)
[2019-03-28] MEDS ORDERED: PROPOFOL INJ 200 MG/20 ML VIAL IV ONE (13:39)
[2019-03-28] MEDS ORDERED: NORMAL SALINE 1000 ML 1,000 ML IV ONE (13:54)
[2019-03-28] MEDS: PROPOFOL 1,000 MG/100 ML INFUS..BTL IV PRN ×3 (14:57→22:21)
[2019-03-28] MEDS: RINGERS SOLUTION,LACTATED 1,000 ML IV PRN (14:59)
[2019-03-28] MEDS ORDERED: ALBUMIN HUMAN 500 ML IV ONE (15:00)
[2019-03-28] MEDS: DEXTROSE 5%-WATER 250 ML with NOREPINEPHRINE BITARTRATE 4 MG IV PRN ×4 (15:10→22:21)
[2019-03-28 15:37] LABS: APPEARANCE,URINE CLEAR; BILIRUBIN,URINE NEGATIVE (NEGATIVE); COLOR,URINE YELLOW; GLUCOSE, URINE NEGATIVE (NEGATIVE); KETONES,URINE NEGATIVE (NEGATIVE); PROTEIN,URINE NEGATIVE (NEGATIVE); URINE SPECIFIC GRAVITY 1.005; UROBILINOGEN,URINE NEGATIVE mg/dL (<2.0)
[2019-03-28] MEDS: ALBUTEROL SULFATE 0.083% NEB 2.5 MG/3 ML AMPUL NEB SCH ×2 (15:57→20:06)
[2019-03-28] MEDS ORDERED: FENTANYL CITRATE INJ/PF 100 MCG/2 ML AMPUL ONE (16:02)
[2019-03-28 16:37] LABS: FREE T4 (FREE THYROXINE) 1.51 ng/dL (0.78-2.19)
[2019-03-28 16:51] LABS: THYROID STIMULATING HORMONE 1.12 uIU/mL (0.47-4.68)
[2019-03-28] MEDS ORDERED: PHARMACY COMMUNICATION ORDER MC NR (17:00)
--- NOTE | 2019-03-28 17:57 | RADIOLOGY REPORT (SQ) ---
EXAM DESCRIPTION: CHEST SINGLE VIEW COMPLETED DATE/TIME: 03/28/2019 5:43 pm REASON FOR STUDY: line and tube placement COMPARISON: 03/28/2019 EXAM PARAMETERS: NUMBER OF VIEWS: One view. TECHNIQUE: Single frontal radiographic view of the chest acquired. RADIATION DOSE: NA LIMITATIONS: None. FINDINGS: LUNGS AND PLEURA: Linear opacity in the left mid lung. Retrocardiac opacification. MEDIASTINUM AND HILAR STRUCTURES: No masses. Contour normal. HEART AND VASCULAR STRUCTURES: Cardiomegaly. No darci pulmonary edema. BONES: No acute findings. HARDWARE: Endotracheal tube has its tip 3 cm above the suki. A right internal jugular catheter has its tip in the superior vena cava. OTHER: No other significant finding. IMPRESSION: Tube and catheter placement as described. Cardiomegaly without darci pulmonary edema. Subsegmental atelectasis in the left mid lung. Airspace disease in left lower lobe, pneumonia versus atelectasis. TECHNICAL DOCUMENTATION: JOB ID: [id number] 2010 [employer]- All Rights Reserved Reading location - IP/workstation name: [email or web address]
[2019-03-28] MEDS ORDERED: INFLUENZA QUAD (6MOS+) 2019-20 VAC 0.5 ML SYR IM ONE (18:20)
[2019-03-28 18:22] LABS: URINE AMPHETAMINES SCREEN NEGATIVE; URINE BARBITURATES SCREEN NEGATIVE; URINE BENZODIAZEPINES SCREEN NEGATIVE; URINE COCAINE SCREEN NEGATIVE; URINE MARIJUANA (THC) SCREEN NEGATIVE; URINE METHADONE SCREEN NEGATIVE; URINE PHENCYCLIDINE SCREEN NEGATIVE
[2019-03-28] MEDS: CEFTRIAXONE 2 GM/D5W RTU 2 GM/50 ML RTUPB IV SCH (18:22)
[2019-03-28] MEDS: HEPARIN SOD (PORCINE) 5,000 UNIT/ML 1 ML VIAL SUBCUT SCH ×2 (18:23→21:20)
[2019-03-28] MEDS ORDERED: FENTANYL CITRATE INJ/PF 100 MCG/2 ML AMPUL IV ONE (18:30)
--- NOTE | 2019-03-28 18:52 | EKG REPORT ---
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
[2019-03-28] MEDS: FAMOTIDINE 20 MG TABLET NG SCH (21:18)
[2019-03-28 21:50] LABS: FLUID APPEARANCE HAZY; FLUID COLOR STRAW; FLUID SOURCE LUNG; FLUID TYPE BRONCHIAL WASH; FLUID VISCOSITY SLIGHTLY VISCOUS
[2019-03-28] MEDS ORDERED: FAMOTIDINE 20 MG TABLET PO SCH (22:00)
--- NOTE | 2019-03-28 22:46 | CRITICAL CARE ADMISSION REPORT ---
HPI Date:: 03/28/19 Time:: 15:46 Reason for ICU Reason:: Acute Hypoxic/Hypercarbic respiratory failure with aspiration of tobacco products HPI: 84-year-old white male with multiple complex past medical history presented to the emergency room with encephalopathy and confusion. Also dyspnea. History of HTN, HLD, DM, GERD, Chronic Pain, Chronic Leg Wounds, BPH (has an in dwelling Baca - last changed 1st of month). Seen in ED 4 days ago and placed on FQ for UTI. Brought in by EMS altered , shortness of breath, cough, hypoxia. The patient was noted to have chewing tobacco in his mouth and down his throat when EMS arrived. EMS removed some of the chewing tobacco prior to ER arrival but more was removed by ER staff. The patient was minimally responsive on arrival and became more responsive as his airway was cleared , however, this waxed and waned and he required intubation. He also became hypotensive requiring peripheral Levophed. X-ray shows near complete whiteout of the left lung. On my evaluation in both the emergency room and the ICU notable suction tobacco fragments were seen. Patient was brought over to the ICU with an improvement in his blood pressure. He required sedation secondary to significant agitation and his propofol requirements were increased. This necessitated a slightly higher dose of Levophed. An emergent bronchoscopy was done which showed significant mucus obstruction of the left mainstem and lower and upper bronchial segments. Significant amount of time was spent in suctioning and clearing all secondary and tertiary segments. Audibly there was no retained tobacco products. There was a mild laryngeal tear at the tip of the ET tube and the ET tube was pulled back away from the pericarinal area. Met with his who states that the patient has had a steady decline in his health. He does have a more sedentary lifestyle. He was seen recently in the emergency room and found to have a urinary tract infection and placed on fluoroquinolones. The Baca was not changed at the time but it was changed on this admission. Culture from that urinalysis is positive for 2 gram-negative organisms both sensitive to Rocephin. History obtained from:: , ED staff - Diagnosis/Plan (1) Aspiration into airway Qualifiers: Encounter type: initial encounter Qualified Code(s): T17.908A - Unspecified foreign body in respiratory tract, part unspecified causing other injury, initial encounter (2) Acute respiratory failure with hypoxia and hypercarbia Is this a current diagnosis for this admission?: Yes (3) Hypotension (arterial) Qualifiers: Hypotension type: unspecified hypotension type Qualified Code(s): I95.9 - Hypotension, unspecified Is this a current diagnosis for this admission?: Yes (4) Complicated urinary tract infection Is this a current diagnosis for this admission?: Yes (5) Dehydration Is this a current diagnosis for this admission?: Yes (6) Mucus plugging of bronchi Is this a current diagnosis for this admission?: Yes (7) Chronic mucus hypersecretion, respiratory Is this a current diagnosis for this admission?: Yes (8) Atrial fibrillation with controlled ventricular response Is this a current diagnosis for this admission?: Yes - . Plan Summary: Patient will be admitted to the ICU and bronchoscopy done quickly to clear secretions and evaluate for foreign body. Placed central access to allow for appropriate Levophed dosing replacing fluid deficits. Send bronch specimens Etiology of mucus obstruction differential Discuss code status with family Follow ABG Echocardiogram Past Medical History Cardiac Medical History: Reports: Hypertension Denies: Atrial Fibrillation Endocrine Medical History: Reports: Diabetes Mellitus Type 2 GI Medical History: Reports: Other - Liver masses? Past Surgical History Past Surgical History: Reports: Other - facial surgery for trauma Social/Family History - Social History Lives with: Spouse/Significant other Smoking Status: Current Every Day Smoker - Medication/Allergies Home Medications: Amlodipine/Atorvastatin [Amlodipine-Atorvast 2.5-10 mg] 1 each PO DAILY 03/28/19 Buspirone HCl 15 mg PO BID 03/28/19 Diclofenac Sodium [Voltaren 25 Mg Tablet] 25 mg PO BID 03/28/19 Furosemide [Lasix 40 mg Tablet] 40 mg PO DAILY 03/28/19 Gabapentin [Neurontin] 600 mg PO Q6 03/28/19 Hydrocodone/Acetaminophen [Hydrocodone-Acetamin 10-300 mg] 1 each PO QIDP PRN 03/28/19 Indapamide 1.25 mg PO DAILY 03/28/19 Levofloxacin [Levaquin 750 mg Tablet] 750 mg PO DAILY 03/28/19 Metformin HCl [Metformin HCl ER] 500 mg PO BIDBS 03/28/19 Omeprazole 40 mg PO DAILY 03/28/19 Rosuvastatin Calcium 5 mg PO DAILY 03/28/19 Tramadol HCl [Ultram 50 mg Tablet] 50 mg PO BIDP PRN 03/28/19 Allergies/Adverse Reactions: No Known Allergies Allergy (Verified 03/28/19 12:53) Review of Systems ROS unobtainable: Due to endotracheal tube, Due to mental status Physical Exam Vital Signs: Temp Pulse Resp BP Pulse Ox 99.6 F 20 100/83 100 03/28/19 12:00 03/28/19 15:20 03/28/19 15:20 03/28/19 15:20 Intake & Output 03/27/19 03/28/19 03/29/19 06:59 06:59 06:59 Intake Total 1002 Balance 1002 Weight 117.934 kg Weight/Height Weight 117.934 kg Height 5 ft 9 in General appearance: PRESENT: no acute distress, disheveled, morbidly obese Exam: Intubated, elderly nontoxic ill-appearing 84-year-old male adequately sedated. Eye exam: PRESENT: conjunctival injection, PERRLA. ABSENT: nystagmus, scleral icterus Mouth exam: PRESENT: dry mucosa, tongue midline, other - Discolored tongue from tobacco Teeth exam: PRESENT: edentulous Neck exam: ABSENT: carotid bruit, JVD, lymphadenopathy, thyromegaly, tracheal deviation Respiratory exam: PRESENT: clear to auscultation lisa. ABSENT: accessory muscle use, rales, rhonchi, wheezes Cardiovascular exam: PRESENT: irregular rhythm, +S1, +S2. ABSENT: tachycardia Pulses: ABSENT: +1 pedal pulses bilateral GI/Abdominal exam: PRESENT: normal bowel sounds, soft. ABSENT: ascites, distended, guarding, mass, organolmegaly, rebound, tenderness Gentrourinary exam: PRESENT: indwelling catheter Extremities exam: PRESENT: +1 edema, +2 edema, other - Has a Porsha boot on the right leg. Small dressing on the left lower anterior leg shows no active lesions but appears to have had previous abrasions and ulceration. Non- erythematous. Neurological exam: PRESENT: altered - Sedated on mechanical ventilation. With gentle reduction in sedation he is moving all extremities no focal deficits. Psychiatric exam: PRESENT: agitated Skin exam: PRESENT: other - Previous ulceration in the lower extremities are apparently in various stages of healing.. ABSENT: erythema, rash Tubes/Lines: PRESENT: Endotracheal Tube Laboratory/Radiographs Laboratory Results: 03/28/19 11:45 03/28/19 11:45 03/28/19 03/28/19 03/28/19 11:45 11:45 11:45 WBC 11.8 H RBC 5.30 Hgb 15.0 Hct 46.3 MCV 87 MCH 28.2 MCHC 32.3 RDW 17.8 H Plt Count 358 Seg Neutrophils % 87.5 H Carbonic Acid HCO3/H2CO3 Ratio ABG pH ABG pCO2 ABG pO2 ABG HCO3 ABG O2 Saturation ABG Base Excess FiO2 Sodium 147.6 H Potassium 4.1 Chloride 101 Carbon Dioxide 37 H Anion Gap 10 BUN 49 H Creatinine 1.12 Est GFR ( Amer) > 60 Glucose 184 H Lactic Acid 2.0 Calcium 9.8 Total Bilirubin 0.8 AST 21 Alkaline Phosphatase 107 Total Protein 7.5 Albumin 3.9 Triglycerides Urine Color Urine Appearance Urine pH Ur Specific [place] Urine Protein Urine Glucose (UA) Urine Ketones Urine Blood Urine RBC (Auto) 03/28/19 03/28/19 03/28/19 11:45 12:15 14:10 WBC RBC Hgb Hct MCV MCH MCHC RDW Plt Count Seg Neutrophils % Carbonic Acid 2.68 H HCO3/H2CO3 Ratio 13:1 ABG pH 7.23 L ABG pCO2 89.1 H* ABG pO2 70.8 L ABG HCO3 36.6 H ABG O2 Saturation 90.1 L ABG Base Excess 5.4 FiO2 15L Sodium Potassium Chloride Carbon Dioxide Anion Gap BUN Creatinine Est GFR ( Amer) Glucose Lactic Acid Calcium Total Bilirubin AST Alkaline Phosphatase Total Protein Albumin Triglycerides 137 Urine Color YELLOW Urine Appearance CLEAR Urine pH 5.0 Ur Specific [place] 1.005 Urine Protein NEGATIVE Urine Glucose (UA) NEGATIVE Urine Ketones NEGATIVE Urine Blood MODERATE H Urine RBC (Auto) 4 03/28/19 11:45 NT-Pro-B Natriuret Pep 3830 H Impressions: Chest X-Ray 03/28/19 00:00 IMPRESSION: Left lower lobe pneumonia. Possible trace left pleural effusion. Aspiration should be considered All labs, radiographs, diagnostic studies and EKGs were personally reviewed: Yes In addition, reports of radiographic and diagnostic studies were read: Yes Critical Time Critical Time (minutes): 80 -: The care of a critically ill patient is dynamic. This note represents a static moment in the admission process. Orders and treatments may be given simultaneously and urgently, and time is not loss control representative of the treatment process. This patient requires Critical Care secondary to life threatening organ or limb dysfunction. Without Critical Care services, the patient is at risk for increased mortality and morbidity.
--- NOTE | 2019-03-28 22:49 | Operative Report ---
Bedside Procedure - History of Present Illness History of Present Illness: 84-year-old white male with multiple complex past medical history presented to the emergency room with encephalopathy and confusion. Also dyspnea. History of HTN, HLD, DM, GERD, Chronic Pain, Chronic Leg Wounds, BPH (has an indwelling Baca - last changed 1st of month). Seen in ED 4 days ago and placed on FQ for UTI. Brought in by EMS altered , shortness of breath, cough, hypoxia. The patient was noted to have chewing tobacco in his mouth and down his throat when EMS arrived. EMS removed some of the chewing tobacco prior to ER arrival but more was removed by ER staff. The patient was minimally responsive on arrival and became more responsive as his airway was cleared , however, this waxed and waned and he required intubation. He also became hypotensive requiring peripheral Levophed. X-ray shows near complete whiteout of the left lung. On my evaluation in both the emergency room and the ICU notable suction tobacco fragments were seen. Patient was brought over to the ICU with an improvement in his blood pressure. He required sedation secondary to significant agitation and his propofol requirements were increased. This necessitated a slightly higher dose of Levophed. An emergent bronchoscopy was done which showed significant mucus obstruction of the left mainstem and lower and upper bronchial segments. Significant amount of time was spent in suctioning and clearing all secondary and tertiary segments. Audibly there was no retained tobacco products. There was a mild laryngeal tear at the tip of the ET tube and the ET tube was pulled back away from the pericarinal area. Met with his who states that the patient has had a steady decline in his health. He does have a more sedentary lifestyle. He was seen recently in the emergency room and found to have a urinary tract infection and placed on fluoroquinolones. The Baca was not changed at the time but it was changed on this admission. Culture from that urinalysis is positive for 2 gram-negative organisms both sensitive to Rocephin. Indication for Procedure: Poor venous access with hypotension Date: 03/28/19 Provider: PARK SANTANA - Central Line Right Internal jugular Time completed: 16:00 Consent obtained: Yes Central line pre-insertion: Sterile PPE donned, Chloraprep applied, Sterile drapes applied Central line lumen type: Triple Anesthetic type: 1% Lidocaine Ultrasound guided: Yes CM at insertion site: 15 Line secured with sutures: Yes Central line post-insertion: Blood return from lumens, Biopatch applied, Sutured, Sterile dressing applied, Position confirmed w/ CXR Complications: No Notes: 03/28/19 22:48 US shows no pneumonthorax. Tip, on xray, at SVC junction
--- NOTE | 2019-03-28 22:54 | Operative Report ---
Bedside Procedure - History of Present Illness History of Present Illness: 84-year-old white male with multiple complex past medical history presented to the emergency room with encephalopathy and confusion. Also dyspnea. History of HTN, HLD, DM, GERD, Chronic Pain, Chronic Leg Wounds, BPH (has an indwelling Baca - last changed 1st of month). Seen in ED 4 days ago and placed on FQ for UTI. Brought in by EMS altered , shortness of breath, cough, hypoxia. The patient was noted to have chewing tobacco in his mouth and down his throat when EMS arrived. EMS removed some of the chewing tobacco prior to ER arrival but more was removed by ER staff. The patient was minimally responsive on arrival and became more responsive as his airway was cleared , however, this waxed and waned and he required intubation. He also became hypotensive requiring peripheral Levophed. X-ray shows near complete whiteout of the left lung. On my evaluation in both the emergency room and the ICU notable suction tobacco fragments were seen. Patient was brought over to the ICU with an improvement in his blood pressure. He required sedation secondary to significant agitation and his propofol requirements were increased. This necessitated a slightly higher dose of Levophed. An emergent bronchoscopy was done which showed significant mucus obstruction of the left mainstem and lower and upper bronchial segments. Significant amount of time was spent in suctioning and clearing all secondary and tertiary segments. Audibly there was no retained tobacco products. There was a mild laryngeal tear at the tip of the ET tube and the ET tube was pulled back away from the pericarinal area. Met with his who states that the patient has had a steady decline in his health. He does have a more sedentary lifestyle. He was seen recently in the emergency room and found to have a urinary tract infection and placed on fluoroquinolones. The Baca was not changed at the time but it was changed on this admission. Culture from that urinalysis is positive for 2 gram-negative organisms both sensitive to Rocephin. Procedure Preprocedure diagnosis: Aspiration of foreign substance Postprocedure diagnosis: Significant mucus obstruction, Left lung with no evidence of foreign substance aspiration Proceduralist: DO Susi [facility] Complications: None EBL: None Findings: Marked thick inspissated white mucus obstruction in the entire left main stem and second and tertiary bronchial segments. No foreign body (tobacco) or food products noted. Tip of ET tube just proximal to suki and showing small mucosal laceration which was nonbleeding. ET tube pulled back. Patient was identified secondary to ongoing critical care, chart check, name bracelet. Timeout was called patient was identified With an already present ET tube the bronchoscope was placed after patient received fentanyl and propofol for sedation. On entrance into the ET tube small mucosal laceration was noted in the anterior precarinal region. ET tube was pulled back because it appeared that the angle of the ET tube was causing more erosion. Next the bronchoscope was advanced into the left lung which was surprisingly found to have significant mucus obstruction of the mainstem bronchus and secondary and tertiary segments. All segments were lavaged and BAL was done as well. There did not appear to be any darci significant obstruction from mass and no endobronchial lesions. There was mild inflammatory changes. Specimens were sent for studies Patient tolerated procedure well there were no complications procedure excludes critical care time Indication for Procedure: Aspiration Date: 03/28/19 Provider: PARK SANTANA
[2019-03-29] MEDS: ALBUTEROL SULFATE 0.083% NEB 2.5 MG/3 ML AMPUL NEB SCH ×6 (00:41→20:36)
[2019-03-29] MEDS: RINGERS SOLUTION,LACTATED 1,000 ML IV PRN ×2 (01:22→11:56)
[2019-03-29] MEDS: PROPOFOL 1,000 MG/100 ML INFUS..BTL IV PRN ×2 (02:13→18:00)
[2019-03-29 03:59] LABS: ABSOLUTE MONOCYTES (AUTO) 0.8 10^3/uL (0.1-1.4); ABSOLUTE NEUT (AUTO) 6.7 10^3/uL (1.7-8.2); BASOPHILS % (AUTO) 0.2 % (0-2); EOSINOPHILS % (AUTO) 0.3 % (0-6); HEMATOCRIT 38.2 % (37.9-51.0); HEMOGLOBIN 12.6 g/dL (13.5-17.0); LYMPHOCYTES % (AUTO) 12.1 % (13-45); MEAN CORPUSCULAR HEMOGLOBIN 28.4 pg (27.0-33.4); MEAN CORPUSCULAR VOLUME 86 fl (80-97); MONOCYTES % (AUTO) 8.8 % (3-13); PLATELET COUNT 175 10^3/uL (150-450); RED BLOOD COUNT 4.44 10^6/uL (4.35-5.55); RED CELL DISTRIBUTION WIDTH 16.8 % (11.5-14.0); SEGMENTED NEUTROPHILS % (AUTO) 78.6 % (42-78); TOTAL CELLS COUNTED % (AUTO) 100 %; WHITE BLOOD COUNT 8.5 10^3/uL (4.0-10.5)
[2019-03-29 04:04] LABS: ALBUMIN 2.8 g/dL (3.5-5.0); ALKALINE PHOSPHATASE 68 U/L (38-126); ANION GAP 7 (5-19); ASPARTATE AMINO TRANSFERASE 15 U/L (17-59); BILIRUBIN,DIRECT 0.4 mg/dL (0.0-0.4); BILIRUBIN,TOTAL 0.8 mg/dL (0.2-1.3); BLOOD UREA NITROGEN 56 mg/dL (7-20); CALCIUM 8.8 mg/dL (8.4-10.2); CARBON DIOXIDE 33 mmol/L (22-30); CHLORIDE 103 mmol/L (98-107); GLUCOSE 191 mg/dL (75-110); POTASSIUM 3.2 mmol/L (3.6-5.0); TOTAL PROTEIN 5.3 g/dL (6.3-8.2); TRIGLYCERIDES 218 mg/dL (<150)
[2019-03-29 04:19] LABS: ARTERIAL BLOOD BASE EXCESS 6.4 mmol/L; ARTERIAL BLOOD H2CO3 1.18 mmol/L (1.05-1.35); ARTERIAL BLOOD O2 SATURATION 97.2 % (94-98); ARTERIAL BLOOD PCO2 39.3 mmHg (35-45); ARTERIAL BLOOD PO2 85.5 mmHg (80-100); ARTERIAL BLOOD TOTAL CO2 31.2 mmol/L (23-27)
[2019-03-29 04:20] LABS: ARTERIAL BLOOD FIO2 40%
[2019-03-29] MEDS ORDERED: DEXTROSE 50%-WATER 25 GM/50 ML DISP.SYRIN IV PRN ×2 (05:07)
[2019-03-29] MEDS ORDERED: DEXTROSE 40% GEL 15 GM TUBE PO PRN ×2 (05:07)
[2019-03-29] MEDS ORDERED: GLUCAGON,HUMAN RECOMB 1 MG INJ IM PRN (05:07)
[2019-03-29] MEDS: HEPARIN SOD (PORCINE) 5,000 UNIT/ML 1 ML VIAL SUBCUT SCH ×3 (05:49→21:34)
[2019-03-29] MEDS: INSULIN REG, HUMAN 100 UNIT/ML 3 ML VIAL (PYX) SUBCUT SCH ×4 (05:51→23:33)
[2019-03-29] MEDS: POTASSI CL 20 MEQ/50 ML RIDER 20 MEQ/50 ML RTUPB IV SCH ×2 (06:24→08:28)
--- NOTE | 2019-03-29 08:14 | RADIOLOGY REPORT (SQ) ---
EXAM DESCRIPTION: CHEST SINGLE VIEW COMPLETED DATE/TIME: 03/29/2019 6:31 am REASON FOR STUDY: aspiration COMPARISON: 03/28/2019 NUMBER OF VIEWS: One view. TECHNIQUE: Single frontal radiographic image of the chest acquired. LIMITATIONS: None. FINDINGS: LUNGS AND PLEURA: Focal atelectasis in the left midlung field is significantly improved. Persistent blunting of both costophrenic angles. MEDIASTINUM AND HILAR STRUCTURES: Stable heart size and mediastinal structures. HEART AND VASCULAR STRUCTURES: Stable appearance. SUPPORT DEVICES: Appropriate location without change. BONES: No acute findings. OTHER: No other significant finding. IMPRESSION: Minimal residual atelectasis in the left midlung field. Small effusions. Support lines and tubes remain in satisfactory position. TECHNICAL DOCUMENTATION: JOB ID: [id number] 2010 [employer]- All Rights Reserved Reading location - IP/workstation name: [email or web address]
[2019-03-29] MEDS: FAMOTIDINE 20 MG TABLET NG SCH ×2 (09:36→21:34)
--- NOTE | 2019-03-29 12:44 | CDI QUERY ---
CDI Query CDI Review: Dear Provider: To better reflect your patients severity of illness, morbidity, and resource utilization Please specify and document in the Progress Notes and Discharge Summary if you are monitoring / treating / evaluating any of the following conditions: Query Clinical indicators Aspiration pneumonia GNR pneumonia Unable to determine Other UTI due to indwelling catheter POA Gram negative UTI due to indwelling catheter POA Unable to determine Other Chest X-Ray 03/28/19 00:00 IMPRESSION: Left lower lobe pneumonia. Possible trace left pleural effusion. Aspiration should be considered Bronchial washings: Chlamydia pneumoniae WBC 11.8 Will replace Baca to obtain a new sample for a UA and culture, will obtain blo od cultures, and will empirically treat with Zosyn and Vanc to cover aspiration and UTI pathogens Abx: Rocephin 2 GM IV ED Note: BPH (has an indwelling Baca - last changed 1st of month) brought in by EMS for altered mental status, shortness of breath, cough, hypoxia Patient has thick purulent urine in his. Will replace Baca to obtain a new sample for a UA and culture Per Progress Note: Culture from that (previous) urinalysis is positive for 2 gram-negative organisms both sensitive to Rocephin. The terms probable, suspected, likely, possible or still to be ruled out may be used if you are unable to determine the exact nature of a condition. Thank you, Clinical Documentation Physician Advisors LUISA Richards RN, BSN RN Office [phone] Office [phone]
--- NOTE | 2019-03-29 12:45 | CDI QUERY ---
CDI Query CDI Review: Dear Provider: To better reflect your patients severity of illness, morbidity, and resource utilization Please specify and document in the Progress Notes and Discharge Summary if you are monitoring / treating / evaluating any of the following conditions: Query Clinical indicators Please specify the etiology of the Encephalopathy if known or expected due to : Metabolic encephalopathy Toxic encephalopathy Hypoxic encephalopathy Please clarify if the A-fib can be further specified: Parosysmal A-fib Persistent A-fib Permanent A-fib Undetermined Per H&P Admitted to ICU for: Acute Hypoxic/Hypercarbic respiratory failure with aspiration of tobacco products 84-year-old white male with multiple complex past medical history presented to the emergency room with encephalopathy and confusion. Also dyspnea. WBC 11.8 Sodium 147.6 Carbon dioxide 37 Lactic Acid 2.0 BNP 3830 Atrial fibrillation with controlled ventricular response Is this a current diagnosis for this admission?: Yes The terms probable, suspected, likely, possible or still to be ruled o ut may be used if you are unable to determine the exact nature of a condition. Thank you, Clinical Documentation Physician Advisors LUISA Richards RN, BSN RN Office [phone] Office [phone]
[2019-03-29 12:46] LABS: ANION GAP 6 (5-19); BLOOD UREA NITROGEN 55 mg/dL (7-20); CALCIUM 8.9 mg/dL (8.4-10.2); CARBON DIOXIDE 35 mmol/L (22-30); CHLORIDE 104 mmol/L (98-107); GLUCOSE 182 mg/dL (75-110); POTASSIUM 3.4 mmol/L (3.6-5.0)
[2019-03-29] MEDS ORDERED: WATER FOR INJECTION,STERILE 1,000 ML with SODIUM CHLORIDE 38.5 MEQ IV PRN ×2 (13:25)
[2019-03-29] MEDS ORDERED: POTASSIUM CHLORIDE 20 MEQ PACKET PO ONE (14:00)
[2019-03-29] MEDS: CEFTRIAXONE 2 GM/D5W RTU 2 GM/50 ML RTUPB IV SCH (17:59)
--- NOTE | 2019-03-29 20:01 | PDOC CRITICAL CARE PROG REPORT ---
General Date:: 03/29/19 ICU Day:: 2 Ventilator Day:: 2 Hospital Day:: 2 Resuscitation Status: Do Not Resuscitate Medical Power of Size Mixer: Daughters, Events in the past 12 to 24 Hours:: Bronchoscopy done revealing extensive mucous obstruction. Hypotension requiring vasopressor support--now discontinued. Started on Precedex for vent wean. SBT started. Review of systems relevant to events:: Levophed off. Low UOP. Critical Care Echo showed low EF and formal echo ordered. Noted Atrial fibrillation on admission with controlled rate Reason for ICU Addmission:: Acute Hypoxic/Hypercarbic respiratory failure with aspiration of tobacco products - Medications: Medications reviewed and adjusted accordingly: Yes Physical Exam Vital Signs: Temp Pulse Resp BP Pulse Ox 98.5 F 90 12 98/69 L 96 03/29/19 08:00 03/29/19 08:46 03/29/19 08:46 03/29/19 08:46 03/29/19 08:46 Intake & Output 03/28/19 03/29/19 03/30/19 06:59 06:59 06:59 Intake Total 2618 50 Output Total 305 75 Balance 2313 -25 Weight 98.1 kg Weight/Height Weight 98.1 kg Height 5 ft 7 in General appearance: PRESENT: no acute distress, morbidly obese, well-nourished Exam: Intubated, non-toxic, chronically and critically ill appearing, NAD Eye exam: PRESENT: conjunctival injection, PERRLA. ABSENT: nystagmus, scleral icterus Mouth exam: PRESENT: dry mucosa, neck supple Teeth exam: PRESENT: edentulous Neck exam: PRESENT: other - Right IJ CVC clean, dry, intact without discoloration. ABSENT: JVD, thyromegaly Respiratory exam: PRESENT: clear to auscultation lisa, unlabored, other - On PSV, Vte >500, no tachypnea. ABSENT: accessory muscle use, rales, rhonchi, tachypnea, wheezes Cardiovascular exam: PRESENT: irregular rhythm, +S1, +S2 Vascular exam: PRESENT: normal capillary refill. ABSENT: pallor GI/Abdominal exam: PRESENT: normal bowel sounds, soft. ABSENT: ascites, distended, guarding, mass, organolmegaly, rebound, tenderness Gentrourinary exam: PRESENT: indwelling catheter Extremities exam: PRESENT: pedal edema Neurological exam: PRESENT: altered - But responsive. Follows commands. No focal deficits. ABSENT: motor sensory deficit Psychiatric exam: PRESENT: appropriate affect. ABSENT: agitated, homicidal ideation, suicidal ideation Focused psych exam: ABSENT: psychomotor agitation, restlessness Skin exam: PRESENT: dry, intact, warm. ABSENT: cyanosis, mottled, pallor, rash Tubes/Lines: PRESENT: Endotracheal Tube, Central Line, Other - Fenton. All catheters placed 03.28.2019 including ETT Laboratory/Radiographs Laboratory Results: 03/29/19 03:36 03/29/19 03:36 03/28/19 03/28/19 03/28/19 11:44 11:44 11:45 WBC 11.8 H RBC 5.30 Hgb 15.0 Hct 46.3 MCV 87 MCH 28.2 MCHC 32.3 RDW 17.8 H Plt Count 358 Seg Neutrophils % 87.5 H Carbonic Acid HCO3/H2CO3 Ratio ABG pH ABG pCO2 ABG pO2 ABG HCO3 ABG O2 Saturation ABG Base Excess FiO2 Sodium Potassium Chloride Carbon Dioxide Anion Gap BUN Creatinine Est GFR ( Amer) Glucose Lactic Acid Calcium Phosphorus 5.0 H Magnesium 2.2 Total Bilirubin AST Alkaline Phosphatase Ammonia Total Protein Albumin Triglycerides TSH 1.12 Free T4 1.51 Urine Color Urine Appearance Urine pH Ur Specific Golden Urine Protein Urine Glucose (UA) Urine Ketones Urine Blood Urine RBC (Auto) Fluid Type Fluid Source Fluid Color Fluid Appearance Fluid Viscosity Fluid WBC Fluid RBC 03/28/19 03/28/19 03/28/19 11:45 11:45 11:45 WBC RBC Hgb Hct MCV MCH MCHC RDW Plt Count Seg Neutrophils % Carbonic Acid HCO3/H2CO3 Ratio ABG pH ABG pCO2 ABG pO2 ABG HCO3 ABG O2 Saturation ABG Base Excess FiO2 Sodium 147.6 H Potassium 4.1 Chloride 101 Carbon Dioxide 37 H Anion Gap 10 BUN 49 H Creatinine 1.12 Est GFR ( Amer) > 60 Glucose 184 H Lactic Acid 2.0 Calcium 9.8 Phosphorus Magnesium Total Bilirubin 0.8 AST 21 Alkaline Phosphatase 107 Ammonia Total Protein 7.5 Albumin 3.9 Triglycerides 137 TSH Free T4 Urine Color Urine Appearance Urine pH Ur Specific Golden Urine Protein Urine Glucose (UA) Urine Ketones Urine Blood Urine RBC (Auto) Fluid Type Fluid Source Fluid Color Fluid Appearance Fluid Viscosity Fluid WBC Fluid RBC 03/28/19 03/28/1903/28/20 12:15 14:10 15:25 WBC RBC Hgb Hct MCV MCH MCHC RDW Plt Count Seg Neutrophils % Carbonic Acid 2.68 H HCO3/H2CO3 Ratio 13:1 ABG pH 7.23 L ABG pCO2 89.1 H* ABG pO2 70.8 L ABG HCO3 36.6 H ABG O2 Saturation 90.1 L ABG Base Excess 5.4 FiO2 15L Sodium Potassium Chloride Carbon Dioxide Anion Gap BUN Creatinine Est GFR ( Amer) Glucose Lactic Acid 2.0 Calcium Phosphorus Magnesium Total Bilirubin AST Alkaline Phosphatase Ammonia Total Protein Albumin Triglycerides TSH Free T4 Urine Color YELLOW Urine Appearance CLEAR Urine pH 5.0 Ur Specific Golden 1.005 Urine Protein NEGATIVE Urine Glucose (UA) NEGATIVE Urine Ketones NEGATIVE Urine Blood MODERATE H Urine RBC (Auto) 4 Fluid Type Fluid Source Fluid Color Fluid Appearance Fluid Viscosity Fluid WBC Fluid RBC 03/28/19 03/28/19 03/28/19 16:55 17:00 17:30 WBC RBC Hgb Hct MCV MCH MCHC RDW Plt Count Seg Neutrophils % Carbonic Acid HCO3/H2CO3 Ratio ABG pH ABG pCO2 ABG pO2 ABG HCO3 ABG O2 Saturation ABG Base Excess FiO2 Sodium Potassium Chloride Carbon Dioxide Anion Gap BUN Creatinine Est GFR ( Amer) Glucose Lactic Acid 2.0 Calcium Phosphorus Magnesium Total Bilirubin AST Alkaline Phosphatase Ammonia < 8.7 L Total Protein Albumin Triglycerides TSH Free T4 Urine Color Urine Appearance Urine pH Ur Specific Golden Urine Protein Urine Glucose (UA) Urine Ketones Urine Blood Urine RBC (Auto) Fluid Type BRONCHIAL WASH Fluid Source LUNG Fluid Color STRAW Fluid Appearance HAZY Fluid Viscosity SLIGHTLY VISCOUS Fluid WBC 8 Fluid RBC 23 03/28/19 03/29/19 03/29/19 18:50 03:36 03:36 WBC 8.5 RBC 4.44 Hgb 12.6 L D Hct 38.2 MCV 86 MCH 28.4 MCHC 33.0 RDW 16.8 H Plt Count 175 Seg Neutrophils % 78.6 H Carbonic Acid HCO3/H2CO3 Ratio ABG pH ABG pCO2 ABG pO2 ABG HCO3 ABG O2 Saturation ABG Base Excess FiO2 Sodium 143.1 Potassium 3.2 L Chloride 103 Carbon Dioxide 33 H Anion Gap 7 BUN 56 H Creatinine 1.32 H Est GFR ( Amer) > 60 Glucose 191 H Lactic Acid 1.9 Calcium 8.8 Phosphorus Magnesium Total Bilirubin 0.8 AST 15 L Alkaline Phosphatase 68 Ammonia Total Protein 5.3 L Albumin 2.8 L Triglycerides 218 H TSH Free T4 Urine Color Urine Appearance Urine pH Ur Specific Golden Urine Protein Urine Glucose (UA) Urine Ketones Urine Blood Urine RBC (Auto) Fluid Type Fluid Source Fluid Color Fluid Appearance Fluid Viscosity Fluid WBC Fluid RBC 03/29/19 03:45 WBC RBC Hgb Hct MCV MCH MCHC RDW Plt Count Seg Neutrophils % Carbonic Acid 1.18 HCO3/H2CO3 Ratio 25:1 ABG pH 7.50 H ABG pCO2 39.3 ABG pO2 85.5 ABG HCO3 30.0 H ABG O2 Saturation 97.2 ABG Base Excess 6.4 FiO2 40% Sodium Potassium Chloride Carbon Dioxide Anion Gap BUN Creatinine Est GFR ( Amer) Glucose Lactic Acid Calcium Phosphorus Magnesium Total Bilirubin AST Alkaline Phosphatase Ammonia Total Protein Albumin Triglycerides TSH Free T4 Urine Color Urine Appearance Urine pH Ur Specific Golden Urine Protein Urine Glucose (UA) Urine Ketones Urine Blood Urine RBC (Auto) Fluid Type Fluid Source Fluid Color Fluid Appearance Fluid Viscosity Fluid WBC Fluid RBC 03/28/19 03/28/19 03/28/19 11:45 16:55 23:29 Troponin I 0.103 0.078 NT-Pro-B Natriuret Pep 3830 H 03/29/19 03:36 Troponin I 0.068 NT-Pro-B Natriuret Pep Impressions: Chest X-Ray 03/29/19 06:00 IMPRESSION: Minimal residual atelectasis in the left midlung field. Small effusions. Support lines and tubes remain in satisfactory position. All labs, radiographs, diagnostic studies and EKGs were personally reviewed: Yes In addition, reports of radiographic and diagnostic studies were read: Yes Assessment and Plan - Diagnosis (1) Sepsis with acute hypercapnic respiratory failure and septic shock Is this a current diagnosis for this admission?: Yes Plan: Klebsiella in urine (2) Sepsis due to gram-negative UTI Is this a current diagnosis for this admission?: Yes Plan: Present on admission due to chronic in-dwelling fenton catheter which was changed on admission (3) Aspiration into airway Qualifiers: Encounter type: initial encounter Qualified Code(s): T17.908A - Unspecified foreign body in respiratory tract, part unspecified causing other injury, initial encounter Is this a current diagnosis for this admission?: Yes (4) Acute respiratory failure with hypoxia and hypercarbia Is this a current diagnosis for this admission?: Yes (5) Hypotension (arterial) Qualifiers: Hypotension type: unspecified hypotension type Qualified Code(s): I95.9 - Hypotension, unspecified Is this a current diagnosis for this admission?: Yes (6) Complicated urinary tract infection Is this a current diagnosis for this admission?: Yes (7) Dehydration Is this a current diagnosis for this admission?: Yes (8) Mucus plugging of bronchi Is this a current diagnosis for this admission?: Yes (9) Chronic mucus hypersecretion, respiratory Is this a current diagnosis for this admission?: Yes (10) Atrial fibrillation with controlled ventricular response Is this a current diagnosis for this admission?: Yes Plan: Parosxysmal atrial fibrillation with controlled ventricular response (11) Chronic indwelling Fenton catheter Is this a current diagnosis for this admission?: Yes Plan: Fenton replaced 03.28.2019 (12) Acute kidney failure Qualifiers: Acute renal failure type: with acute tubular necrosis Qualified Code(s): N17.0 - Acute kidney failure with tubular necrosis Is this a current diagnosis for this admission?: Yes Plan Summary: 03.29.2019: Patient continues to improve and will attempt to liberate from ventilator. He has gram-negative UTI which is led to sepsis present on admission from a chronic indwelling Fenton catheter. This catheter has been exchanged and he is on appropriate antibiotics. Echo cardiogram has been completed and we are awaiting official reading. Need to consider digoxin given a wet reading of a poor EF in the face of atrial dilatation and paroxysmal A. fib. I am both hesitant and reticent to start anticoagulation given his limited ability to walk and risk of fall. Furthermore neither he nor the family want aggressive care. We will discuss this with them and should they seek anticoagulation as a treatment will need to discuss further risks and benefits. In addition to the above he has 1 set of blood cultures positive for gram positive organisms. We will continue to recheck and determine the specific organism. check cultures Precedex ventilator wean. Critical Time Critical Time (minutes): 35 Level of Care: ICU -: 1. The care of a critical patient is a dynamic process. This note is a insurance claims representative synopsis but static in nature. The timeframe for treatments given in order is not necessarily the actual time these treatments may have been done. 2. This patient requires critical care secondary to ongoing requirements for therapy not offered or safe outside the critical care environment. Transfer to a lower level of care will result in altered life or limb morbidity and mortality. 3. Multidisciplinary rounds completed. 4. ABCDE bundle addressed.
[2019-03-30] MEDS: ALBUTEROL SULFATE 0.083% NEB 2.5 MG/3 ML AMPUL NEB SCH ×6 (00:01→20:18)
[2019-03-30] MEDS: PROPOFOL 1,000 MG/100 ML INFUS..BTL IV PRN (02:58)
[2019-03-30] MEDS: INSULIN REG, HUMAN 100 UNIT/ML 3 ML VIAL (PYX) SUBCUT SCH ×3 (06:09→18:05)
[2019-03-30 06:16] LABS: ARTERIAL BLOOD BASE EXCESS 8.3 mmol/L; ARTERIAL BLOOD H2CO3 1.17 mmol/L (1.05-1.35); ARTERIAL BLOOD HCO3 31.6 mmol/L (20-24); ARTERIAL BLOOD PH 7.53 (7.35-7.45); ARTERIAL BLOOD PO2 61.9 mmHg (80-100); ARTERIAL BLOOD TOTAL CO2 32.8 mmol/L (23-27)
[2019-03-30 06:18] LABS: PHOSPHORUS 2.6 mg/dL (2.5-4.5)
[2019-03-30 06:20] LABS: ABSOLUTE LYMPHOCYTES (AUTO) 1.5 10^3/uL (0.5-4.7); ABSOLUTE MONOCYTES (AUTO) 0.8 10^3/uL (0.1-1.4); ABSOLUTE NEUT (AUTO) 6.7 10^3/uL (1.7-8.2); BASOPHILS % (AUTO) 0.1 % (0-2); EOSINOPHILS % (AUTO) 0.3 % (0-6); HEMATOCRIT 38.4 % (37.9-51.0); HEMOGLOBIN 12.6 g/dL (13.5-17.0); LYMPHOCYTES % (AUTO) 16.4 % (13-45); MEAN CORPUSCULAR HEMOGLOBIN 28.3 pg (27.0-33.4); MEAN CORPUSCULAR HGB CONC 32.8 g/dL (32.0-36.0); MEAN CORPUSCULAR VOLUME 86 fl (80-97); MONOCYTES % (AUTO) 9.2 % (3-13); PLATELET COUNT 166 10^3/uL (150-450); RED BLOOD COUNT 4.46 10^6/uL (4.35-5.55); TOTAL CELLS COUNTED % (AUTO) 100 %
[2019-03-30 06:29] LABS: ARTERIAL BLOOD FIO2 25%
[2019-03-30] MEDS: HEPARIN SOD (PORCINE) 5,000 UNIT/ML 1 ML VIAL SUBCUT SCH ×3 (06:39→21:13)
[2019-03-30] MEDS: FAMOTIDINE 20 MG TABLET NG SCH (09:01)
--- NOTE | 2019-03-30 09:14 | RADIOLOGY REPORT (SQ) ---
EXAM DESCRIPTION: CHEST SINGLE VIEW COMPLETED DATE/TIME: 03/30/2019 7:00 am REASON FOR STUDY: aspiration COMPARISON: 03/29/2019 NUMBER OF VIEWS: One view. TECHNIQUE: Single frontal radiographic image of the chest acquired. LIMITATIONS: None. FINDINGS: LUNGS AND PLEURA: Small left pleural effusion and associated airspace disease not signific antly changed. MEDIASTINUM AND HEART: Stable heart size and mediastinal structures. SUPPORT DEVICES: Appropriate location without change. BONY STRUCTURES: No acute findings. HARDWARE: None. OTHER: No other significant finding. IMPRESSION: STABLE APPEARANCE OF THE CHEST. SUPPORT DEVICES UNCHANGED. Reading location - IP/workstation name: [email or web address]
[2019-03-30] MEDS ORDERED: FUROSEMIDE INJ/PF 20 MG/2 ML SDV IV ONE (10:50)
[2019-03-30 15:34] LABS: ARTERIAL BLOOD BASE EXCESS 6.1 mmol/L; ARTERIAL BLOOD H2CO3 1.07 mmol/L (1.05-1.35); ARTERIAL BLOOD HCO3 28.9 mmol/L (20-24); ARTERIAL BLOOD O2 SATURATION 95.8 % (94-98); ARTERIAL BLOOD PCO2 35.6 mmHg (35-45); ARTERIAL BLOOD PH 7.53 (7.35-7.45); ARTERIAL BLOOD PO2 70.5 mmHg (80-100)
[2019-03-30 15:44] LABS: ARTERIAL BLOOD FIO2 25%
--- NOTE | 2019-03-30 16:21 | XCELERA REPORT ---
[address] [address] Transthoracic Echocardiogram Report Name: KAEL PAREDES Age: 84 yrs Gender: Male : 1935 Patient Status: Inpatient Patient Location: ICU^[id number] Study Date: 03/28/2019 08:12 PM Height: 67 in Weight: 211 lb BSA: 2.1 m2 Procedure: A two-dimensional transthoracic echocardiogram with color flow and Doppler was performed. Study Quality: Poor. The study was technically limited with all images being suboptimal in quality. Reason For Study: cardiomyopathy History: cardiomyopathy. Ordering Physician: PARK SANTANA Performed By: Yadira Mendoza Interpretation Summary The left ventricle is mildly dilated. There is mild to moderate concentric left ventricular hypertrophy. LV EF is 25% to 30% Left ventricular systolic function is severely reduced. LV diastolic function could not be adequately assessed. There is severe global hypokinesis of the left ventricle. There is no thrombus. Cannot assess ASD,VSD , or PFO. The right ventricle is not well visualized secondary to technical limitations The right atrium is mildly dilated. Mild to moderate LA enlargement. There is no evidence of mitral valve prolapse. There is no vegetation seen on the mitral valve. There is no mitral valve stenosis. There is a trace amount of mitral regurgitation There is no aortic valvular vegetation. There is mild aortic stenosis There is a peak gradient of 16.2 mm of HG , and a Mean Gradient of 9.2 mm of Hg. No aortic regurgitation is present. There is no tricuspid stenosis. There is a trace amount of tricuspid regurgitation There is mild pulmonary hypertension by echo RVSP is 40 to 45 mm of Hg , with RA mean of 15 to 20 There is no pulmonic valvular stenosis. There is no pulmonic valvular regurgitation. The aortic root is normal size. The inferior vena cava appeared dilated and decreased < 50% with respiration (RAP 15-20 mmHg) There is no pericardial effusion. MMode/2D Measurements & Calculations RVDd: 3.1 cm LVIDd: 4.5 cm FS: 9.6 % Ao root diam: 3.2 cm IVSd: 1.6 cm LVIDs: 4.1 cm EDV(Teich): 92.8 ml Ao root area: 8.2 cm2 LVPWd: 1.3 cm ESV(Teich): 73.2 ml LA dimension: 4.4 cm EF(Teich): 21.2 % LVOT diam: 2.0 cm LVOT area: 3.2 cm2 Doppler Measurements & Calculations MV E max glenny: MV P1/2t max glenny: Ao V2 max: LV V1 max P.9 cm/sec 104.2 cm/sec 201.3 cm/sec 3.0 mmHg MV A max glenny: MV P1/2t: 63.9 msec Ao max PG: LV V1 mean P.1 cm/sec MVA(P1/2t): 3.4 cm2 16.2 mmHg 1.1 mmHg MV E/A: 1.7 MV dec slope: Ao V2 mean: LV V1 max: 147.0 cm/sec 85.2 cm/sec 477.8 cm/sec2 Ao mean PG: LV V1 mean: MV dec time: 0.18 sec 9.7 mmHg 49.5 cm/sec Ao V2 VTI: 38.3 cm LV V1 VTI: 11.5 cm BREANNE(I,D): 0.97 cm2 BREANNE(V,D): 1.4 cm2 SV(LVOT): 37.0 ml TV V2 max: PA V2 max: TR max glenny: 171.0 cm/sec 49.4 cm/sec 250.4 cm/sec TV max P.7 mmHg PA max PG: TR max P.97 mmHg 25.1 mmHg MV P1/2t-pr_phl: 63.9 msec Left Ventricle The left ventricle is mildly dilated. There is mild to moderate concentric left ventricular hypertrophy. LV EF is 25% to 30%. Left ventricular systolic function is severely reduced. LV diastolic function could not be adequately assessed. There is severe global hypokinesis of the left ventricle. There is no thrombus. Cannot assess ASD,VSD , or PFO. Right Ventricle The right ventricle is not well visualized secondary to technical limitations. Atria The right atrium is mildly dilated. Mild to moderate LA enlargement. Mitral Valve There is no evidence of mitral valve prolapse. There is no vegetation seen on the mitral valve. There is no mitral valve stenosis. There is a trace amount of mitral regurgitation. Aortic Valve There is no aortic valvular vegetation. There is mild aortic stenosis. There is a peak gradient of 16.2 mm of HG , and a Mean Gradient of 9.2 mm of Hg. There is no LVOT obstruction. No aortic regurgitation is present. Tricuspid Valve There is no tricuspid stenosis. There is a trace amount of tricuspid regurgitation. There is mild pulmonary hypertension by echo. RVSP is 40 to 45 mm of Hg , with RA mean of 15 to 20. Pulmonic Valve There is no pulmonic valvular stenosis. There is no pulmonic valvular regurgitation. Great Vessels The aortic root is normal size. The inferior vena cava appeared dilated and decreased < 50% with respiration (RAP 15-20 mmHg). Effusions There is no pericardial effusion. : PARK SANTANA Lakshmi
[2019-03-30] MEDS ORDERED: PHARMACY COMMUNICATION ORDER MC NR (17:30)
[2019-03-30] MEDS: CEFTRIAXONE 2 GM/D5W RTU 2 GM/50 ML RTUPB IV SCH (18:16)
[2019-03-30] MEDS ORDERED: DEXTROSE 40% GEL 15 GM TUBE NG PRN ×2 (18:30)
[2019-03-30] MEDS: DEXMEDETOMIDINE IN 0.9 % NACL 400 MCG/100 ML RTUPB IV PRN (21:12)
--- NOTE | 2019-03-30 23:27 | PDOC CRITICAL CARE PROG REPORT ---
General Date:: 03/30/19 ICU Day:: 3 Ventilator Day:: 3 Hospital Day:: 3 Resuscitation Status: Do Not Resuscitate Medical Power of Shrimp P[place] Laborer: Daughters, Events in the past 12 to 24 Hours:: : Hypoxia with movement. Starting diuresis. Bronchoscopy done revealing extensive mucous obstruction. Hypotension requiring vasopressor support--now discontinued. Started on Precedex for vent wean. SBT started. Review of systems relevant to events:: 03.30.2019: Attempt at weaning was thwarted by significant mucus which was suctioned from the ET tube. He was able to lift his head but concern for extensive mucus obstruction prevented liberation. He was started on percussion and drainage. 03.29.2019:Levophed off. Low UOP. Critical Care Echo showed low EF and formal echo ordered. Noted Atrial fibrillation on admission with controlled rate Reason for ICU Addmission:: Acute Hypoxic/Hypercarbic respiratory failure with aspiration of tobacco products - Medications: Medications reviewed and adjusted accordingly: Yes Sedation:: Precedex Physical Exam Vital Signs: Temp Pulse Resp BP Pulse Ox 98.9 F 94 15 113/71 95 03/30/19 08:00 03/30/19 10:00 03/30/19 10:03 03/30/19 10:03 03/30/19 10:03 Intake & Output 03/29/19 03/30/19 03/31/19 06:59 06:59 06:59 Intake Total 3168 1256 100 Output Total 305 1030 80 Balance 2863 226 20 Weight 98.1 kg 98.3 kg Weight/Height Weight 98.3 kg Height 5 ft 7 in General appearance: PRESENT: no acute distress, cooperative, well-developed, well-nourished Exam: Elderly nontoxic 84-year-old male no active distress. Eye exam: PRESENT: conjunctiva pink, EOMI, PERRLA. ABSENT: scleral icterus Mouth exam: PRESENT: moist Neck exam: ABSENT: JVD, lymphadenopathy Respiratory exam: PRESENT: clear to auscultation lisa. ABSENT: accessory muscle use, rales, rhonchi, wheezes Cardiovascular exam: PRESENT: irregular rhythm, +S1, +S2. ABSENT: tachycardia GI/Abdominal exam: PRESENT: normal bowel sounds, soft. ABSENT: ascites, distended, guarding, mass, organolmegaly, rebound, tenderness Rectal exam: PRESENT: deferred Gentrourinary exam: PRESENT: indwelling catheter Neurological exam: PRESENT: awake. ABSENT: motor sensory deficit - Follows commands Psychiatric exam: PRESENT: appropriate affect, normal mood. ABSENT: homicidal ideation, suicidal ideation Skin exam: PRESENT: dry, intact, warm. ABSENT: cyanosis, rash Tubes/Lines: PRESENT: Endotracheal Tube, Central Line - Clean and dry without erythema, Other - Baca-chronic. New replacement on admission Laboratory/Radiographs Laboratory Results: 03/30/19 04:05 03/29/19 12:00 03/29/19 03/30/19 03/30/19 12:00 04:05 04:05 WBC 9.0 RBC 4.46 Hgb 12.6 L Hct 38.4 MCV 86 MCH 28.3 MCHC 32.8 RDW 17.0 H Plt Count 166 Seg Neutrophils % 74.0 Carbonic Acid 1.17 HCO3/H2CO3 Ratio 27:1 ABG pH 7.53 H ABG pCO2 39.0 ABG pO2 61.9 L ABG HCO3 31.6 H ABG O2 Saturation 94.0 ABG Base Excess 8.3 FiO2 25% Sodium 144.7 Potassium 3.4 L Chloride 104 Carbon Dioxide 35 H Anion Gap 6 BUN 55 H Creatinine 1.31 H Est GFR ( Amer) > 60 Glucose 182 H Calcium 8.9 Phosphorus Magnesium 03/30/19 04:05 WBC RBC Hgb Hct MCV MCH MCHC RDW Plt Count Seg Neutrophils % Carbonic Acid HCO3/H2CO3 Ratio ABG pH ABG pCO2 ABG pO2 ABG HCO3 ABG O2 Saturation ABG Base Excess FiO2 Sodium Potassium Chloride Carbon Dioxide Anion Gap BUN Creatinine Est GFR ( Amer) Glucose Calcium Phosphorus 2.6 Magnesium 2.1 03/28/19 14:10 Clean Catch Midstream Urine Culture - Final NO GROWTH 2 DAYS 03/28/19 21:00 Catheterized Urine Urine Culture - Final NO GROWTH 2 DAYS 03/28/19 12:15 Blood Blood Culture (PCR) - Final Staphylococcus Species 03/28/19 03/28/19 03/28/19 11:45 16:55 23:29 Troponin I 0.103 0.078 NT-Pro-B Natriuret Pep 3830 H 03/29/19 03:36 Troponin I 0.068 NT-Pro-B Natriuret Pep Impressions: Chest X-Ray 03/30/19 06:00 IMPRESSION: STABLE APPEARANCE OF THE CHEST. SUPPORT DEVICES UNCHANGED. All labs, radiographs, diagnostic studies and EKGs were personally reviewed: Yes In addition, reports of radiographic and diagnostic studies were read: Yes Assessment and Plan - Diagnosis (1) Sepsis with acute hypercapnic respiratory failure and septic shock Is this a current diagnosis for this admission?: Yes (2) Sepsis due to gram-negative UTI Is this a current diagnosis for this admission?: Yes (3) Aspiration into airway Qualifiers: Encounter type: initial encounter Qualified Code(s): T17.908A - Unspecified foreign body in respiratory tract, part unspecified causing other injury, initial encounter Is this a current diagnosis for this admission?: Yes (4) Acute respiratory failure with hypoxia and hypercarbia Is this a current diagnosis for this admission?: Yes (5) Hypotension (arterial) Qualifiers: Hypotension type: unspecified hypotension type Qualified Code(s): I95.9 - Hypotension, unspecified Is this a current diagnosis for this admission?: Yes (6) Complicated urinary tract infection Is this a current diagnosis for this admission?: Yes (7) Dehydration Is this a current diagnosis for this admission?: Yes (8) Mucus plugging of bronchi Is this a current diagnosis for this admission?: Yes (9) Chronic mucus hypersecretion, respiratory Is this a current diagnosis for this admission?: Yes (10) Atrial fibrillation with controlled ventricular response Is this a current diagnosis for this admission?: Yes (11) Chronic indwelling Baca catheter Is this a current diagnosis for this admission?: Yes (12) Acute kidney failure Qualifiers: Acute renal failure type: with acute tubular necrosis Qualified Code(s): N17.0 - Acute kidney failure with tubular necrosis Is this a current diagnosis for this admission?: Yes Plan Summary: 03.30.2019: Attempts to wean were thwarted by excess mucus from the ET tube. Will perform chest percussion and drainage. We will also introduce Diamox for diuretic and reduction in pH affect. Patient is now following commands and his neurological discerns appear to have been improved. Continue supportive care including nutritional support. Does have persistent atrial fibrillation and I am concerned that this may lead to stroke and this octogenarian. Have added heparin but will need to have discussion with family regarding continued use of this if he has any concerns with safety. We will attempt to wean further in the morning. He does have a pleural effusion on the left that may need to be drained if he has difficulty weaning from the ventilator. Coarse heparin will need to be discontinued. 2: Patient continues to improve and will attempt to liberate from ventilator. He has gram-negative UTI which is led to sepsis present on admission from a chronic indwelling Baca catheter. This catheter has been exchanged and he is on appropriate antibiotics. Echo cardiogram has been completed and we are awaiting official reading. Need to consider digoxin given a wet reading of a poor EF in the face of atrial dilatation and paroxysmal A. fib. I am both hesitant and reticent to start anticoagulation given his limited ability to walk and risk of fall. Furthermore neither he nor the family want aggressive care. We will discuss this with them and should they seek anticoagulation as a treatment will need to discuss further risks and benefits. In addition to the above he has 1 set of blood cultures positive for gram positive organisms. We will continue to recheck and determine the specific organism. check cultures Precedex ventilator wean. Critical Time Critical Time (minutes): 50 Level of Care: ICU -: 1. The care of a critical patient is a dynamic process. This note is a insurance service representative synopsis but static in nature. The timeframe for treatments given in order is not necessarily the actual time these treatments may have been done. 2. This patient requires critical care secondary to ongoing requirements for therapy not offered or safe outside the critical care environment. Transfer to a lower level of care will result in altered life or limb morbidity and mortality. 3. Multidisciplinary rounds completed. 4. ABCDE bundle addressed.
[2019-03-30] MEDS ORDERED: HEPARIN SOD (PORCINE) 1,000 UNIT/ML 10 ML VIAL ONE (23:43)
[2019-03-30] MEDS ORDERED: ACETAZOLAMIDE SODIUM INJ 500 MG VIAL ONE (23:44)
[2019-03-30] MEDS: ACETAZOLAMIDE SODIUM INJ 500 MG VIAL IV SCH (23:49)
[2019-03-31] MEDS: HEPARIN SOD (PORCINE) 1,000 UNIT/ML 10 ML VIAL IV PRN ×2 (00:10→15:18)
[2019-03-31] MEDS: HEPARIN SODIUM,PORCINE/D5W 25,000 UNIT/250 ML RTUINJ IV PRN (00:11)
[2019-03-31] MEDS: ALBUTEROL SULFATE 0.083% NEB 2.5 MG/3 ML AMPUL NEB SCH ×6 (00:14→20:27)
[2019-03-31] MEDS: INSULIN REG, HUMAN 100 UNIT/ML 3 ML VIAL (PYX) SUBCUT SCH ×4 (00:31→18:25)
[2019-03-31] MEDS: DEXMEDETOMIDINE IN 0.9 % NACL 400 MCG/100 ML RTUPB IV PRN (03:08)
[2019-03-31 03:46] LABS: ABSOLUTE LYMPHOCYTES (AUTO) 0.8 10^3/uL (0.5-4.7); ABSOLUTE MONOCYTES (AUTO) 0.5 10^3/uL (0.1-1.4); ABSOLUTE NEUT (AUTO) 5.8 10^3/uL (1.7-8.2); BASOPHILS % (AUTO) 0.2 % (0-2); EOSINOPHILS % (AUTO) 0.5 % (0-6); HEMATOCRIT 39.1 % (37.9-51.0); HEMOGLOBIN 12.5 g/dL (13.5-17.0); LYMPHOCYTES % (AUTO) 10.6 % (13-45); MEAN CORPUSCULAR HEMOGLOBIN 27.9 pg (27.0-33.4); MEAN CORPUSCULAR HGB CONC 31.9 g/dL (32.0-36.0); MEAN CORPUSCULAR VOLUME 87 fl (80-97); MONOCYTES % (AUTO) 7.1 % (3-13); PLATELET COUNT 137 10^3/uL (150-450); RED BLOOD COUNT 4.48 10^6/uL (4.35-5.55); RED CELL DISTRIBUTION WIDTH 16.6 % (11.5-14.0); SEGMENTED NEUTROPHILS % (AUTO) 81.6 % (42-78); TOTAL CELLS COUNTED % (AUTO) 100 %; WHITE BLOOD COUNT 7.1 10^3/uL (4.0-10.5)
[2019-03-31 03:52] LABS: ARTERIAL BLOOD BASE EXCESS 7.6 mmol/L; ARTERIAL BLOOD HCO3 31.1 mmol/L (20-24); ARTERIAL BLOOD O2 SATURATION 95.1 % (94-98); ARTERIAL BLOOD PCO2 39.8 mmHg (35-45); ARTERIAL BLOOD PH 7.51 (7.35-7.45); ARTERIAL BLOOD TOTAL CO2 32.3 mmol/L (23-27)
[2019-03-31 03:53] LABS: ARTERIAL BLOOD FIO2 25%
[2019-03-31 04:23] LABS: ANION GAP 7 (5-19); BLOOD UREA NITROGEN 37 mg/dL (7-20); CALCIUM 8.7 mg/dL (8.4-10.2); CARBON DIOXIDE 35 mmol/L (22-30); CHLORIDE 109 mmol/L (98-107); GLUCOSE 216 mg/dL (75-110); PHOSPHORUS 3.6 mg/dL (2.5-4.5)
[2019-03-31 04:35] LABS: POTASSIUM 2.9 mmol/L (3.6-5.0)
[2019-03-31] MEDS ORDERED: ACETAZOLAMIDE SODIUM INJ 500 MG VIAL ONE (04:48)
--- NOTE | 2019-03-31 04:48 | RADIOLOGY REPORT (SQ) ---
CLINICAL HISTORY: atelectasis COMPARISON: 03/30/2019. TECHNIQUE: XR CHEST 1 VIEW 03/30/2019 5:30 PM CURATOR FINDINGS: The heart is enlarged. There is mild left basilar airspace disease. There is a small left pleural effusion. There is no pneumothorax. There are no acute osseous findings. Endotracheal tube, nasogastric tube and right central line are unchanged. IMPRESSION: No change.
[2019-03-31] MEDS ORDERED: POTASSIUM CHLORIDE 10 MEQ TABLET.ER PO ONE (04:54)
[2019-03-31] MEDS: POTASSI CL 20 MEQ/50 ML RIDER 20 MEQ/50 ML RTUPB IV SCH ×2 (04:57→05:46)
[2019-03-31] MEDS: ACETAZOLAMIDE SODIUM INJ 500 MG VIAL IV SCH ×3 (05:04→21:17)
[2019-03-31] MEDS ORDERED: POTASSIUM CHLORIDE 20 MEQ PACKET NG ONE (08:00)
--- NOTE | 2019-03-31 08:25 | RADIOLOGY REPORT (SQ) ---
EXAM DESCRIPTION: CHEST SINGLE VIEW COMPLETED DATE/TIME: 03/31/2019 6:50 am REASON FOR STUDY: aspiration COMPARISON: 03/30/2019 NUMBER OF VIEWS: One view. TECHNIQUE: Single frontal radiographic image of the chest acquired. LIMITATIONS: None. FINDINGS: LUNGS AND PLEURA: Small pleural effusions and associated airspace disease not significantl y changed. No pneumothorax. MEDIASTINUM AND HEART: Stable heart size and mediastinal structures. SUPPORT DEVICES: Appropriate location without change. BONY STRUCTURES: No acute findings. HARDWARE: None. OTHER: No other significant finding. IMPRESSION: STABLE APPEARANCE OF THE CHEST. SUPPORT DEVICES UNCHANGED. Reading location - IP/workstation name: [email or web address]
--- NOTE | 2019-03-31 12:39 | PDOC CRITICAL CARE PROG REPORT ---
General Date:: 03/31/19 ICU Day:: 3 Ventilator Day:: 3 Hospital Day:: 3 Resuscitation Status: Do Not Resuscitate Medical Power of Managed Care Specialist: Daughters, Events in the past 12 to 24 Hours:: Spontaneous breathing trial went awaiting sedation to be metabolized. Review of systems relevant to events:: Respiratory, neurological. Reason for ICU Addmission:: Acute Hypoxic/Hypercarbic respiratory failure with aspiration of tobacco products - Medications: Medications reviewed and adjusted accordingly: Yes Vasopressors:: None Sedation:: Precedex off since this AM. Physical Exam Vital Signs: Temp Pulse Resp BP Pulse Ox 98.9 F 88 36 H 106/74 95 03/31/19 10:00 03/31/19 11:53 03/31/19 11:53 03/31/19 11:19 03/31/19 11:53 Intake & Output 03/30/19 03/31/19 04/01/19 06:59 06:59 06:59 Intake Total 1306 363 0 Output Total 1030 2370 225 Balance Weight 98.3 kg 99.5 kg Weight/Height Weight 99.5 kg Height 5 ft 7 in General appearance: PRESENT: no acute distress Head exam: PRESENT: atraumatic, normocephalic Eye exam: PRESENT: conjunctiva pink, EOMI, PERRLA. ABSENT: scleral icterus Ear exam: PRESENT: normal external ear exam Mouth exam: PRESENT: moist, tongue midline Respiratory exam: PRESENT: clear to auscultation lisa, other - Scant secretions. ABSENT: rales, rhonchi, wheezes Cardiovascular exam: PRESENT: RRR. ABSENT: diastolic murmur, rubs, systolic murmur GI/Abdominal exam: PRESENT: normal bowel sounds, soft. ABSENT: distended, guarding, mass, organolmegaly, rebound, tenderness Rectal exam: PRESENT: deferred Gentrourinary exam: PRESENT: indwelling catheter Extremities exam: PRESENT: full ROM. ABSENT: calf tenderness, clubbing, pedal edema Musculoskeletal exam: PRESENT: normal inspection Neurological exam: PRESENT: altered Skin exam: PRESENT: dry, intact, warm. ABSENT: cyanosis, rash Tubes/Lines: PRESENT: Endotracheal Tube, Arterial Catheter, Nasogastic Tube Laboratory/Radiographs Laboratory Results: 03/31/19 03:21 03/31/19 03:21 03/30/19 03/31/19 03/31/19 15:10 03:21 03:21 WBC RBC Hgb Hct MCV MCH MCHC RDW Plt Count Seg Neutrophils % Carbonic Acid 1.07 1.20 HCO3/H2CO3 Ratio 27:1 25:1 ABG pH 7.53 H 7.51 H ABG pCO2 35.6 39.8 ABG pO2 70.5 L 68.0 L ABG HCO3 28.9 H 31.1 H ABG O2 Saturation 95.8 95.1 ABG Base Excess 6.1 7.6 FiO2 25% 25% Sodium 150.8 H Potassium 2.9 L* Chloride 109 H Carbon Dioxide 35 H Anion Gap 7 BUN 37 H Creatinine 1.30 H Est GFR ( Amer) > 60 Glucose 216 H Calcium 8.7 Phosphorus 3.6 Magnesium 2.0 03/31/19 03:21 WBC 7.1 RBC 4.48 Hgb 12.5 L Hct 39.1 MCV 87 MCH 27.9 MCHC 31.9 L RDW 16.6 H Plt Count 137 L Seg Neutrophils % 81.6 H Carbonic Acid HCO3/H2CO3 Ratio ABG pH ABG pCO2 ABG pO2 ABG HCO3 ABG O2 Saturation ABG Base Excess FiO2 Sodium Potassium Chloride Carbon Dioxide Anion Gap BUN Creatinine Est GFR ( Amer) Glucose Calcium Phosphorus Magnesium 03/28/19 12:15 Blood Blood Culture (PCR) - Final Staphylococcus Species 03/28/19 17:30 Bronchial Washings Fungal Smear - Final 03/28/19 17:30 Bronchial Washings Fungal Smear - Final 03/28/19 17:30 Bronchial Washings Gram Stain - Final 03/28/19 17:30 Bronchial Washings Bronchial Washings Culture - Final Mrsa (Meth Resis Staph Aureus) Yeast, Not Demi Albicans Normal [place] Absent 03/28/19 14:10 Clean Catch Midstream Urine Culture - Final NO GROWTH 2 DAYS 03/28/19 21:00 Catheterized Urine Urine Culture - Final NO GROWTH 2 DAYS 03/28/19 03/28/19 03/28/19 11:45 16:55 23:29 Troponin I 0.103 0.078 NT-Pro-B Natriuret Pep 3830 H 03/29/19 03:36 Troponin I 0.068 NT-Pro-B Natriuret Pep Impressions: Chest X-Ray 03/31/19 06:00 IMPRESSION: STABLE APPEARANCE OF THE CHEST. SUPPORT DEVICES UNCHANGED. All labs, radiographs, diagnostic studies and EKGs were personally reviewed: Yes In addition, reports of radiographic and diagnostic studies were read: Yes Assessment and Plan - Diagnosis (1) Acute respiratory failure with hypoxia and hypercarbia Is this a current diagnosis for this admission?: Yes Plan: His RSBI is 12-34. Scant secretions. When more awake will extubate. (2) Aspiration into airway Qualifiers: Encounter type: initial encounter Qualified Code(s): T17.908A - Unspecified foreign body in respiratory tract, part unspecified causing other injury, initial encounter Is this a current diagnosis for this admission?: Yes Plan: His aspiration of tobacco has worsened his respiratory status, but not the only reason. (3) Atrial fibrillation with controlled ventricular response Is this a current diagnosis for this admission?: Yes Plan: Unknown how long he has been in afib. Will consider PO DOAC when extubated if not a fall risk. (4) Hypokalemia Is this a current diagnosis for this admission?: Yes Plan: Level 2.9 will replace. (5) Acute kidney failure Qualifiers: Acute renal failure type: with acute tubular necrosis Qualified Code(s): N17.0 - Acute kidney failure with tubular necrosis Is this a current diagnosis for this admission?: Yes Plan: Nearly resolved with GFR 52. Plan Summary: Hope to extubate soon. Critical Time Critical Time (minutes): 35 Level of Care: ICU Anticipated discharge: SNF Within: Other - Too soon to tell. -: 1. The care of a critical patient is a dynamic process. This note is a novelties sales representative synopsis but static in nature. The timeframe for treatments given in order is not necessarily the actual time these treatments may have been done. 2. This patient requires critical care secondary to ongoing requirements for therapy not offered or safe outside the critical care environment. Transfer to a lower level of care will result in altered life or limb morbidity and mortality. 3. Multidisciplinary rounds completed. 4. ABCDE bundle addressed.
[2019-03-31] MEDS: CEFTRIAXONE 2 GM/D5W RTU 2 GM/50 ML RTUPB IV SCH (17:04)
[2019-03-31] MEDS ORDERED: LINEZOLID 600 MG/300 ML RTUPB IV ONE (23:31)
[2019-03-31] MEDS: LINEZOLID 600 MG/300 ML RTUPB IV SCH (23:52)
[2019-04-01] MEDS: ALBUTEROL SULFATE 0.083% NEB 2.5 MG/3 ML AMPUL NEB SCH ×6 (00:37→20:52)
[2019-04-01] MEDS: INSULIN REG, HUMAN 100 UNIT/ML 3 ML VIAL (PYX) SUBCUT SCH ×5 (01:10→23:17)
[2019-04-01] MEDS: HEPARIN SODIUM,PORCINE/D5W 25,000 UNIT/250 ML RTUINJ IV PRN (03:39)
[2019-04-01 03:51] LABS: ANION GAP 5 (5-19); BLOOD UREA NITROGEN 29 mg/dL (7-20); CALCIUM 8.4 mg/dL (8.4-10.2); CARBON DIOXIDE 33 mmol/L (22-30); CHLORIDE 111 mmol/L (98-107); GLUCOSE 254 mg/dL (75-110)
[2019-04-01 04:00] LABS: POTASSIUM 2.8 mmol/L (3.6-5.0)
[2019-04-01] MEDS ORDERED: POTASSIUM CHLORIDE 20 MEQ PACKET NG ONE ×2 (04:30→10:00)
[2019-04-01] MEDS: ACETAZOLAMIDE SODIUM INJ 500 MG VIAL IV SCH ×3 (06:22→21:39)
[2019-04-01] MEDS: HEPARIN SOD (PORCINE) 1,000 UNIT/ML 10 ML VIAL IV PRN (07:05)
--- NOTE | 2019-04-01 09:24 | RADIOLOGY REPORT (SQ) ---
EXAM DESCRIPTION: CHEST SINGLE VIEW COMPLETED DATE/TIME: 04/01/2019 7:50 am REASON FOR STUDY: respiratory failure; f/u effusions and PNA COMPARISON: 03/31/2019 EXAM PARAMETERS: NUMBER OF VIEWS: One view. TECHNIQUE: Single frontal radiographic view of the chest acquired. RADIATION DOSE: NA LIMITATIONS: None. FINDINGS: LUNGS AND PLEURA: Improved aeration of the lung bases. Persistent small left effusion. MEDIASTINUM AND HILAR STRUCTURES: No masses. Contour normal. HEART AND VASCULAR STRUCTURES: Heart enlarged. Mild vascular congestion. BONES: No acute findings. HARDWARE: ETT, venous access catheter, NG tube unchanged. OTHER: No other significant finding. IMPRESSION: Improved aeration of the lung bases. Support devices unchanged. TECHNICAL DOCUMENTATION: JOB ID: [id number] 2010 [employer]- All Rights Reserved Reading location - IP/workstation name: [email or web address]
[2019-04-01] MEDS: LINEZOLID 600 MG/300 ML RTUPB IV SCH ×2 (10:26→21:39)
[2019-04-01] MEDS: DEXMEDETOMIDINE IN 0.9 % NACL 400 MCG/100 ML RTUPB IV PRN (15:30)
[2019-04-01 16:06] LABS: POTASSIUM 3.2 mmol/L (3.6-5.0)
[2019-04-01] MEDS ORDERED: (PENDING PHARMACY ID) (Buspirone Hcl [Buspirone Hcl] 15 MG) PO SCH (18:00)
[2019-04-01] MEDS: BUSPIRONE HCL 10 MG TABLET PO SCH (18:53)
[2019-04-01] MEDS: ATORVASTATIN CALCIUM 10 MG TABLET PO SCH (21:39)
[2019-04-02] MEDS: ALBUTEROL SULFATE 0.083% NEB 2.5 MG/3 ML AMPUL NEB SCH ×6 (00:42→20:45)
[2019-04-02] MEDS: INSULIN REG, HUMAN 100 UNIT/ML 3 ML VIAL (PYX) SUBCUT SCH ×6 (03:54→21:46)
[2019-04-02 04:22] LABS: BLOOD UREA NITROGEN 25 mg/dL (7-20); CALCIUM 8.4 mg/dL (8.4-10.2); GLUCOSE 239 mg/dL (75-110)
[2019-04-02 04:28] LABS: ANION GAP 5 (5-19); CARBON DIOXIDE 29 mmol/L (22-30); CHLORIDE 111 mmol/L (98-107)
[2019-04-02] MEDS: HEPARIN SOD (PORCINE) 1,000 UNIT/ML 10 ML VIAL IV PRN (04:36)
[2019-04-02] MEDS: HEPARIN SODIUM,PORCINE/D5W 25,000 UNIT/250 ML RTUINJ IV PRN (04:41)
[2019-04-02] MEDS ORDERED: PHOSPHORUS #1 250 MG TABLET NG SCH (05:00)
[2019-04-02] MEDS ORDERED: POTASSIUM CHLORIDE 20 MEQ PACKET NG SCH (05:00)
[2019-04-02] MEDS: BUSPIRONE HCL 10 MG TABLET PO SCH ×2 (05:09→18:58)
[2019-04-02] MEDS: ACETAZOLAMIDE SODIUM INJ 500 MG VIAL IV SCH (05:13)
[2019-04-02] MEDS ORDERED: POTASSIUM CHLORIDE 20 MEQ PACKET ONE (05:13)
--- NOTE | 2019-04-02 08:50 | RADIOLOGY REPORT (SQ) ---
EXAM DESCRIPTION: CHEST SINGLE VIEW COMPLETED DATE/TIME: 04/02/2019 7:55 am REASON FOR STUDY: resp failure w/ bilateral effusions; r/o worsening COMPARISON: 04/01/2019 EXAM PARAMETERS: NUMBER OF VIEWS: One view TECHNIQUE: Single frontal radiograph of the chest. RADIATION DOSE: N/A LIMITATIONS: None. FINDINGS: TEMPORARY SUPPORT DEVICES:ETT in expected location. NG tube courses below the harvinder-diaphr agm in to the stomach. Central venous access catheter tip is in expected location. LUNGS AND PLEURA: No opacities. Bilateral effusions. No masses. No pneumothorax. MEDIASTINUM AND HILAR STRUCTURES: No masses. Contour normal. HEART AND VASCULAR STRUCTURES: Heart enlarged. Vascular congestion. Aorta normal for age. BONES: No acute findings. OTHER: No other significant finding. IMPRESSION: Bilateral effusions. Heart enlarged with vascular congestion. SUPPORT DEVICE(S) IN EXPECTED LOCATIONS. TECHNICAL DOCUMENTATION: JOB ID: [id number] 2010 [id number]- All Rights Reserved Reading location - IP/workstation name: [email or web address]
[2019-04-02] MEDS ORDERED: FUROSEMIDE 40 MG TABLET PO SCH (10:00)
[2019-04-02] MEDS ORDERED: (PENDING PHARMACY ID) (Rosuvastatin Calcium [Rosuvastatin Calcium] 5 MG) PO SCH (10:00)
[2019-04-02] MEDS ORDERED: POTASSI CL 20 MEQ/50 ML RIDER 20 MEQ/50 ML RTUPB IV ONE (10:07)
[2019-04-02] MEDS ORDERED: FUROSEMIDE INJ/PF 40 MG/4 ML SDV ONE (10:08)
[2019-04-02] MEDS: LINEZOLID 600 MG/300 ML RTUPB IV SCH ×2 (10:09→21:25)
--- NOTE | 2019-04-02 10:47 | PDOC CRITICAL CARE PROG REPORT ---
General Date:: 04/02/19 ICU Day:: 5 Hospital Day:: 5 Resuscitation Status: Do Not Resuscitate Medical Power of Artist Relationship Manager: Daughters, Events in the past 12 to 24 Hours:: Extubated Review of systems relevant to events:: Respiratory Reason for ICU Addmission:: Acute Hypoxic/Hypercarbic respiratory failure with aspiration of tobacco products - Medications: Medications reviewed and adjusted accordingly: Yes Vasopressors:: None Sedation:: None Physical Exam Vital Signs: Temp Pulse Resp BP Pulse Ox 98.6 F 84 27 H 115/69 98 04/02/19 08:00 04/02/19 09:32 04/02/19 09:40 04/02/19 09:32 04/02/19 09:40 Intake & Output 04/01/19 04/02/19 04/03/19 06:59 06:59 06:59 Intake Total 525 6 Output Total 2019 1335 125 Balance -1495 691 -125 Weight 95.8 kg 95.9 kg Weight/Height Weight 95.9 kg Height 5 ft 7 in General appearance: PRESENT: no acute distress Head exam: PRESENT: atraumatic, normocephalic Eye exam: PRESENT: conjunctiva pink, EOMI, PERRLA. ABSENT: scleral icterus Ear exam: PRESENT: normal external ear exam Mouth exam: PRESENT: moist, tongue midline Respiratory exam: PRESENT: crackles, decreased breath sounds, rhonchi, tachypnea, unlabored Cardiovascular exam: PRESENT: RRR. ABSENT: diastolic murmur, rubs, systolic murmur GI/Abdominal exam: PRESENT: normal bowel sounds, soft. ABSENT: distended, guarding, mass, organolmegaly, rebound, tenderness Rectal exam: PRESENT: deferred Extremities exam: PRESENT: full ROM. ABSENT: calf tenderness, clubbing, pedal edema Neurological exam: PRESENT: altered, awake, CN II-XII grossly intact Skin exam: PRESENT: dry, intact, warm. ABSENT: cyanosis, rash Laboratory/Radiographs Laboratory Results: 03/31/19 03:21 04/02/19 03:50 04/01/19 04/02/19 15:30 03:50 Sodium 145.4 H Potassium 3.2 L 3.0 L* Chloride 111 H Carbon Dioxide 29 Anion Gap 5 BUN 25 H Creatinine 1.14 Est GFR ( Amer) > 60 Glucose 239 H Calcium 8.4 Phosphorus 3.0 Magnesium 2.2 2.3 03/28/19 12:15 Blood Blood Culture (PCR) - Final Staphylococcus Species 03/28/19 03/28/19 03/28/19 11:45 16:55 23:29 Troponin I 0.103 0.078 NT-Pro-B Natriuret Pep 3830 H 03/29/19 03:36 Troponin I 0.068 NT-Pro-B Natriuret Pep Impressions: Chest X-Ray 04/02/19 00:00 IMPRESSION: Bilateral effusions. Heart enlarged with vascular congestion. SUPPORT DEVICE(S) IN EXPECTED LOCATIONS. All labs, radiographs, diagnostic studies and EKGs were personally reviewed: Yes In addition, reports of radiographic and diagnostic studies were read: Yes Assessment and Plan - Diagnosis (1) Acute respiratory failure with hypoxia and hypercarbia Is this a current diagnosis for this admission?: Yes Plan: He is extubated and on bipap. I do not believe he will need this for long (2) Aspiration into airway Qualifiers: Encounter type: initial encounter Qualified Code(s): T17.908A - Unspecified foreign body in respiratory tract, part unspecified causing other injury, initial encounter Is this a current diagnosis for this admission?: Yes Plan: No significant effects (3) Atrial fibrillation with controlled ventricular response Is this a current diagnosis for this admission?: Yes Plan: He is on heparin and will change to DOAC when taking PO. (4) Hypokalemia Is this a current diagnosis for this admission?: Yes Plan: On higher dose replacements. Recheck in AM. (5) Acute kidney failure Qualifiers: Acute renal failure type: with acute tubular necrosis Qualified Code(s): N17.0 - Acute kidney failure with tubular necrosis Is this a current diagnosis for this admission?: Yes Plan: Resolved Plan Summary: Mobilize with PT. Start PO soon. Still needs the ICU for reintubation risk. Critical Time Critical Time (minutes): 40 Level of Care: ICU Anticipated discharge: SNF Within: Other - Too soon to tell. -: 1. The care of a critical patient is a dynamic process. This note is a branch service representative synopsis but static in nature. The timeframe for treatments given in order is not necessarily the actual time these treatments may have been done. 2. This patient requires critical care secondary to ongoing requirements for therapy not offered or safe outside the critical care environment. Transfer to a lower level of care will result in altered life or limb morbidity and mortality. 3. Multidisciplinary rounds completed. 4. ABCDE bundle addressed.
[2019-04-02] MEDS: POTASSIUM CHLORIDE 20 MEQ/50 ML RTU IV SCH ×3 (10:50→15:22)
[2019-04-02] MEDS: FUROSEMIDE INJ/PF 40 MG/4 ML SDV IV SCH (10:50)
--- NOTE | 2019-04-02 11:00 | PDOC CRITICAL CARE PROG REPORT ---
General Date:: 04/01/19 ICU Day:: 4 Ventilator Day:: 4 Hospital Day:: 4 Resuscitation Status: Do Not Resuscitate Medical Power of Director Of Counterintelligence: Daughters, Events in the past 12 to 24 Hours:: Cultures of sputum returned with MRSA. Review of systems relevant to events:: Respiratory, neurological. Reason for ICU Addmission:: Acute Hypoxic/Hypercarbic respiratory failure with aspiration of tobacco products. Intubation - Medications: Medications reviewed and adjusted accordingly: Yes Vasopressors:: None Sedation:: None Physical Exam Vital Signs: Temp Pulse Resp BP Pulse Ox 98.6 F 84 27 H 115/69 98 04/02/19 08:00 04/02/19 09:32 04/02/19 09:40 04/02/19 09:32 04/02/19 09:40 Intake & Output 04/01/19 04/02/19 04/03/19 06:59 06:59 06:59 Intake Total 525 2026 Output Total 2020 1335 125 Balance -1495 691 -125 Weight 95.8 kg 95.9 kg Weight/Height Weight 95.9 kg Height 5 ft 7 in General appearance: PRESENT: no acute distress Head exam: PRESENT: atraumatic, normocephalic Eye exam: PRESENT: conjunctiva pink, EOMI, PERRLA. ABSENT: scleral icterus Ear exam: PRESENT: normal external ear exam Mouth exam: PRESENT: moist, tongue midline Respiratory exam: PRESENT: clear to auscultation lisa, decreased breath sounds, rhonchi. ABSENT: rales, wheezes Cardiovascular exam: PRESENT: RRR. ABSENT: diastolic murmur, rubs, systolic murmur GI/Abdominal exam: PRESENT: normal bowel sounds, soft. ABSENT: distended, guarding, mass, organolmegaly, rebound, tenderness Rectal exam: PRESENT: deferred Gentrourinary exam: PRESENT: indwelling catheter Extremities exam: PRESENT: full ROM. ABSENT: calf tenderness, clubbing, pedal edema Musculoskeletal exam: PRESENT: normal inspection Neurological exam: PRESENT: altered Skin exam: PRESENT: dry, intact, warm. ABSENT: cyanosis, rash Tubes/Lines: PRESENT: Endotracheal Tube, Central Line, Nasogastic Tube Laboratory/Radiographs Laboratory Results: 03/31/19 03:21 04/02/19 03:50 02/22/20 02/23/20 15:30 03:50 Sodium 145.4 H Potassium 3.2 L 3.0 L* Chloride 111 H Carbon Dioxide 29 Anion Gap 5 BUN 25 H Creatinine 1.14 Est GFR ( Amer) > 60 Glucose 239 H Calcium 8.4 Phosphorus 3.0 Magnesium 2.2 2.3 03/28/19 12:15 Blood Blood Culture (PCR) - Final Staphylococcus Species 03/28/19 03/28/19 03/28/19 11:45 16:55 23:29 Troponin I 0.103 0.078 NT-Pro-B Natriuret Pep 3830 H 03/29/19 03:36 Troponin I 0.068 NT-Pro-B Natriuret Pep Impressions: Chest X-Ray 04/02/19 00:00 IMPRESSION: Bilateral effusions. Heart enlarged with vascular congestion. SUPPORT DEVICE(S) IN EXPECTED LOCATIONS. All labs, radiographs, diagnostic studies and EKGs were personally reviewed: Yes In addition, reports of radiographic and diagnostic studies were read: Yes Assessment and Plan - Diagnosis (1) Acute respiratory failure with hypoxia and hypercarbia Is this a current diagnosis for this admission?: Yes Plan: We would like to try weaning and extubate when secretions are less. RSBI good. (2) Aspiration into airway Qualifiers: Encounter type: initial encounter Qualified Code(s): T17.908A - Unspecified foreign body in respiratory tract, part unspecified causing other injury, initial encounter Is this a current diagnosis for this admission?: Yes Plan: Resolving (3) Atrial fibrillation with controlled ventricular response Is this a current diagnosis for this admission?: Yes Plan: Keep on heparin, switch soon to eliquis or xarelto. (4) Hypokalemia Is this a current diagnosis for this admission?: Yes (5) Acute kidney failure Qualifiers: Acute renal failure type: with acute tubular necrosis Qualified Code(s): N17.0 - Acute kidney failure with tubular necrosis Is this a current diagnosis for this admission?: Yes Plan: Resolved Plan Summary: Awaiting fewer secretins before extubation. At his advanced age would like to extubate sooner than later. Critical Time Critical Time (minutes): 35 Level of Care: ICU Anticipated discharge: SNF Within: Other - Too soon to tell. -: 1. The care of a critical patient is a dynamic process. This note is a passenger relations representative synopsis but static in nature. The timeframe for treatments given in order is not necessarily the actual time these treatments may have been done. 2. This patient requires critical care secondary to ongoing requirements for therapy not offered or safe outside the critical care environment. Transfer to a lower level of care will result in altered life or limb morbidity and mortality. 3. Multidisciplinary rounds completed. 4. ABCDE bundle addressed.
[2019-04-02] MEDS ORDERED: MORPHINE SULFATE 10 MG/ML INJ ONE (11:09)
[2019-04-02] MEDS ORDERED: MORPHINE SULFATE 10 MG/ML INJ IV ONE (12:00)
[2019-04-02 15:14] LABS: C DIFFICILE GDH POSITIVE (NEGATIVE)
[2019-04-02] MEDS ORDERED: TRAMADOL HCL 50 MG TABLET PO PRN (15:43)
[2019-04-02 19:08] LABS: ARTERIAL BLOOD BASE EXCESS -1.5 mmol/L; ARTERIAL BLOOD FIO2 3L; ARTERIAL BLOOD HCO3 24.5 mmol/L (20-24); ARTERIAL BLOOD O2 SATURATION 98.7 % (94-98); ARTERIAL BLOOD PCO2 46.6 mmHg (35-45); ARTERIAL BLOOD PH 7.34 (7.35-7.45); ARTERIAL BLOOD PO2 145.5 mmHg (80-100)
[2019-04-02 19:28] LABS: ANION GAP 5 (5-19); BLOOD UREA NITROGEN 24 mg/dL (7-20); CALCIUM 8.3 mg/dL (8.4-10.2); CARBON DIOXIDE 29 mmol/L (22-30); CHLORIDE 113 mmol/L (98-107); GLUCOSE 124 mg/dL (75-110); POTASSIUM 3.8 mmol/L (3.6-5.0)
[2019-04-02] MEDS: ATORVASTATIN CALCIUM 10 MG TABLET PO SCH (21:25)
[2019-04-03] MEDS: ALBUTEROL SULFATE 0.083% NEB 2.5 MG/3 ML AMPUL NEB SCH ×6 (00:05→19:15)
[2019-04-03] MEDS: HEPARIN SODIUM,PORCINE/D5W 25,000 UNIT/250 ML RTUINJ IV PRN ×2 (01:57→23:53)
[2019-04-03] MEDS: INSULIN REG, HUMAN 100 UNIT/ML 3 ML VIAL (PYX) SUBCUT SCH ×5 (02:37→17:33)
[2019-04-03] MEDS: BUSPIRONE HCL 10 MG TABLET PO SCH ×2 (06:16→17:33)
[2019-04-03 06:48] LABS: ANION GAP 6 (5-19); BLOOD UREA NITROGEN 23 mg/dL (7-20); CALCIUM 8.2 mg/dL (8.4-10.2); CARBON DIOXIDE 27 mmol/L (22-30); CHLORIDE 113 mmol/L (98-107); GLUCOSE 141 mg/dL (75-110); POTASSIUM 3.5 mmol/L (3.6-5.0)
--- NOTE | 2019-04-03 09:25 | PDOC CRITICAL CARE PROG REPORT ---
General Date:: 04/03/19 ICU Day:: 6 Hospital Day:: 6 Resuscitation Status: Do Not Resuscitate Medical Power of Harbor Tug Captain: Daughters, Events in the past 12 to 24 Hours:: More awake and conversant Review of systems relevant to events:: Respiratory, neurological. Reason for ICU Addmission:: Acute Hypoxic/Hypercarbic respiratory failure with aspiration of tobacco product. - Medications: Medications reviewed and adjusted accordingly: Yes Vasopressors:: None Sedation:: None. Physical Exam Vital Signs: Temp Pulse Resp BP Pulse Ox 97 F L 80 26 H 114/66 99 04/03/19 04:00 04/03/19 08:03 04/03/19 08:03 04/03/19 06:05 04/03/19 08:03 Intake & Output 04/02/19 04/03/19 04/04/19 06:59 06:59 06:59 Intake Total 2126 650 Output Total 1335 1670 Balance 791 -1020 Weight 95.9 kg 96.9 kg Weight/Height Weight 96.9 kg Height 5 ft 7 in General appearance: PRESENT: no acute distress, cooperative Head exam: PRESENT: atraumatic, normocephalic Eye exam: PRESENT: conjunctiva pink, EOMI, PERRLA. ABSENT: scleral icterus Ear exam: PRESENT: normal external ear exam Mouth exam: PRESENT: dry mucosa Respiratory exam: PRESENT: crackles, decreased breath sounds, rhonchi, tachypnea Cardiovascular exam: PRESENT: RRR. ABSENT: diastolic murmur, rubs, systolic murmur GI/Abdominal exam: PRESENT: normal bowel sounds, soft. ABSENT: distended, guarding, mass, organolmegaly, rebound, tenderness Rectal exam: PRESENT: deferred Gentrourinary exam: PRESENT: indwelling catheter Extremities exam: PRESENT: full ROM. ABSENT: calf tenderness, clubbing, pedal edema Musculoskeletal exam: PRESENT: normal inspection Neurological exam: PRESENT: alert, awake, oriented to person, oriented to place, other - Sluggish. Skin exam: PRESENT: dry, intact, warm. ABSENT: cyanosis, rash Laboratory/Radiographs Laboratory Results: 03/31/19 03:21 04/03/19 06:00 04/02/19 04/02/19 04/02/19 08:45 18:54 18:54 Carbonic Acid 1.40 H HCO3/H2CO3 Ratio 17:1 ABG pH 7.34 L ABG pCO2 46.6 H ABG pO2 145.5 H ABG HCO3 24.5 H ABG O2 Saturation 98.7 H ABG Base Excess -1.5 FiO2 3L Sodium 147.3 H Potassium 3.8 Chloride 113 H Carbon Dioxide 29 Anion Gap 5 BUN 24 H Creatinine 1.18 Est GFR ( Amer) > 60 Glucose 124 H Calcium 8.3 L Stl C.difficile Tox PCR NEGATIVE 04/03/19 06:00 Carbonic Acid HCO3/H2CO3 Ratio ABG pH ABG pCO2 ABG pO2 ABG HCO3 ABG O2 Saturation ABG Base Excess FiO2 Sodium 145.5 H Potassium 3.5 L Chloride 113 H Carbon Dioxide 27 Anion Gap 6 BUN 23 H Creatinine 1.13 Est GFR ( Amer) > 60 Glucose 141 H Calcium 8.2 L Stl C.difficile Tox PCR 03/28/19 17:30 Bronchial Washings Chlamydia pneumoniae (PCR) - Final 03/28/19 12:15 Blood Blood Culture (PCR) - Final Staphylococcus Species 03/28/19 12:15 Blood Blood Culture - Final Staphylococcus Epidermidis Peptostreptococcus Species 03/28/19 11:45 Blood Blood Culture - Final NO GROWTH IN 5 DAYS 03/28/19 03/28/19 03/28/19 11:45 16:55 23:29 Troponin I 0.103 0.078 NT-Pro-B Natriuret Pep 3830 H 03/29/19 03:36 Troponin I 0.068 NT-Pro-B Natriuret Pep Impressions: Chest X-Ray 04/02/19 00:00 IMPRESSION: Bilateral effusions. Heart enlarged with vascular congestion. SUPPORT DEVICE(S) IN EXPECTED LOCATIONS. All labs, radiographs, diagnostic studies and EKGs were personally reviewed: Yes In addition, reports of radiographic and diagnostic studies were read: Yes Assessment and Plan - Diagnosis (1) Acute respiratory failure with hypoxia and hypercarbia Is this a current diagnosis for this admission?: Yes Plan: He is extubated and off bipap. On high flow. He has a weak cough and until he can better clear secretions, the ICU is the most appropriate setting (2) Aspiration into airway Qualifiers: Encounter type: initial encounter Qualified Code(s): T17.908A - Unspecified foreign body in respiratory tract, part unspecified causing other injury, initial encounter Is this a current diagnosis for this admission?: Yes Plan: He still has somewhat thick secretions. (3) Atrial fibrillation with controlled ventricular response Is this a current diagnosis for this admission?: Yes Plan: Controlled (4) Hypokalemia Is this a current diagnosis for this admission?: Yes Plan: Still slightly low at 3.5. (5) Acute kidney failure Qualifiers: Acute renal failure type: with acute tubular necrosis Qualified Code(s): N17.0 - Acute kidney failure with tubular necrosis Is this a current diagnosis for this admission?: Yes Plan: Resolved Plan Summary: Keep in ICU. Clear liquids and PT to mobilize. Critical Time Critical Time (minutes): 35 Level of Care: ICU Anticipated discharge: SNF Within: Other - Too soon to tell. -: 1. The care of a critical patient is a dynamic process. This note is a sales representative wire rope synopsis but static in nature. The timeframe for treatments given in order is not necessarily the actual time these treatments may have been done. 2. This patient requires critical care secondary to ongoing requirements for therapy not offered or safe outside the critical care environment. Transfer to a lower level of care will result in altered life or limb morbidity and mortality. 3. Multidisciplinary rounds completed. 4. ABCDE bundle addressed.
[2019-04-03] MEDS: LINEZOLID 600 MG/300 ML RTUPB IV SCH ×2 (10:27→21:00)
[2019-04-03] MEDS: FUROSEMIDE INJ/PF 40 MG/4 ML SDV IV SCH (10:27)
[2019-04-03] MEDS ORDERED: FUROSEMIDE INJ/PF 20 MG/2 ML SDV IV ONE (19:46)
[2019-04-03] MEDS ORDERED: FUROSEMIDE INJ/PF 20 MG/2 ML SDV ONE (19:48)
[2019-04-03] MEDS: ATORVASTATIN CALCIUM 10 MG TABLET PO SCH (21:01)
[2019-04-04] MEDS: ALBUTEROL SULFATE 0.083% NEB 2.5 MG/3 ML AMPUL NEB SCH ×6 (00:24→21:33)
[2019-04-04] MEDS: INSULIN REG, HUMAN 100 UNIT/ML 3 ML VIAL (PYX) SUBCUT SCH ×3 (01:31→13:10)
[2019-04-04] MEDS: BUSPIRONE HCL 10 MG TABLET PO SCH (05:28)
[2019-04-04] MEDS: HEPARIN SOD (PORCINE) 1,000 UNIT/ML 10 ML VIAL IV PRN (06:20)
[2019-04-04 06:25] LABS: ANION GAP 6 (5-19); BLOOD UREA NITROGEN 23 mg/dL (7-20); CALCIUM 8.1 mg/dL (8.4-10.2); CARBON DIOXIDE 27 mmol/L (22-30); CHLORIDE 110 mmol/L (98-107); GLUCOSE 134 mg/dL (75-110); POTASSIUM 3.3 mmol/L (3.6-5.0)
[2019-04-04] MEDS: POTASSIUM CHLORIDE 20 MEQ/50 ML RTU IV SCH ×2 (08:26→10:46)
[2019-04-04] MEDS: FUROSEMIDE INJ/PF 40 MG/4 ML SDV IV SCH (10:46)
[2019-04-04] MEDS: LINEZOLID 600 MG/300 ML RTUPB IV SCH (10:47)
--- NOTE | 2019-04-04 10:49 | XCELERA REPORT ---
[address] [address] Lower Extremity Arterial Evaluation Name: KAEL PAREDES Age: 84 yrs Gender: Male : 1935 Patient Status: Inpatient Patient Location: ICU^[id number] Study Date: 04/03/2019 10:02 PM Procedure: A color flow and duplex scan of the lower extremity arteries was performed bilaterally with velocity and waveform anaylsis. Reason For Study: diminished pedal pulses, mottled feet/legs Ordering Physician: FABRICE DALTON Performed By: Justyna Howell Measurements and Calculations Right Left LEISURE STUDIES PROFESSOR PSV 138.3 116.3 cm/sec Prox PFA PSV 69.4 82.2 cm/sec Prox Pop A PSV 30.8 26.4 cm/sec Dist Pop A PSV -69.8 -61.7 cm/sec Prox NATA PSV -16.1 19.4 cm/sec Dist GERIATRIC ASSISTANT PSV 62.9 -56.2 cm/sec Dylan Pedis PSV 16.1 -9.4 cm/sec Right Side Arterial Evaluation Vessel wall irregularity, suggestive of plaque noted in the Femoral and Popliteal arteries. Normal velocity and triphasic waveforms noted from the Common Femoral artery to the Popliteal. Biphasic with normal velocity in the Posterior tibial, Low velocity in the Anterior tibial . Monophasic very low velocity in the Dorsal's Pedis artery. . Ankle Brachial index not done. Left Side Arterial Evaluation Vessel wall irregularity, suggestive of plaque noted in the Popliteal artery. Normal velocity and triphasic waveforms noted from the Common Femoral artery to the Popliteal. Biphasic with normal velocity in the Posterior tibial, Low velocity in the Anterior tibial . Monophasic very low velocity in the Dorsal's Pedis artery. Interpretation Summary Moderate hemodynamically significant lesions in the bilateral lower extremities, on duplex imaging, at rest. 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 The Anterior Tibial more severely affected. : FABRICE DALTON > Joshua Carreon
--- NOTE | 2019-04-04 11:47 | PDOC CRITICAL CARE PROG REPORT ---
General Date:: 04/04/19 ICU Day:: 7 Hospital Day:: 7 Resuscitation Status: Do Not Resuscitate Medical Power of Cabinetmaker Maintenance: Daughters, Events in the past 12 to 24 Hours:: Patient starting to refuse interventions. Expressing desire to drastically limit care. Review of systems relevant to events:: Respiratory. Reason for ICU Addmission:: Acute Hypoxic/Hypercarbic respiratory failure with aspiration of tobacco product. - Medications: Medications reviewed and adjusted accordingly: Yes Vasopressors:: None Sedation:: None Physical Exam Vital Signs: Temp Pulse Resp BP Pulse Ox 98.1 F 86 26 H 110/80 100 04/04/19 08:00 04/04/19 10:00 04/04/19 10:00 04/04/19 10:00 04/04/19 10:00 Intake & Output 04/03/19 04/04/19 04/05/19 06:59 06:59 06:59 Intake Total 950 932 50 Output Total 1670 2250 85 Balance -720 -1318 -35 Weight 96.9 kg 92.8 kg Weight/Height Weight 92.8 kg Height 5 ft 7 in General appearance: PRESENT: no acute distress, cooperative Head exam: PRESENT: atraumatic, normocephalic Eye exam: PRESENT: conjunctiva pink, EOMI, PERRLA. ABSENT: scleral icterus Ear exam: PRESENT: normal external ear exam Mouth exam: PRESENT: moist, tongue midline Respiratory exam: PRESENT: crackles, rhonchi, tachypnea Cardiovascular exam: PRESENT: RRR. ABSENT: diastolic murmur, rubs, systolic murmur GI/Abdominal exam: PRESENT: normal bowel sounds, soft. ABSENT: distended, guarding, mass, organolmegaly, rebound, tenderness Rectal exam: PRESENT: deferred Gentrourinary exam: PRESENT: indwelling catheter Extremities exam: PRESENT: full ROM. ABSENT: calf tenderness, clubbing, pedal edema Musculoskeletal exam: PRESENT: normal inspection Neurological exam: PRESENT: alert, awake, oriented to person, oriented to place Laboratory/Radiographs Laboratory Results: 03/31/19 03:21 04/04/19 05:26 04/04/19 05:26 Sodium 143.3 Potassium 3.3 L Chloride 110 H Carbon Dioxide 27 Anion Gap 6 BUN 23 H Creatinine 1.04 Est GFR ( Amer) > 60 Glucose 134 H Calcium 8.1 L 03/30/19 05:00 Blood Blood Culture - Final NO GROWTH IN 5 DAYS 03/30/19 04:17 Blood Blood Culture - Final NO GROWTH IN 5 DAYS 03/28/19 17:30 Bronchial Washings Chlamydia pneumoniae (PCR) - Final 03/28/19 03/28/19 03/28/19 11:45 16:55 23:29 Troponin I 0.103 0.078 NT-Pro-B Natriuret Pep 3830 H 03/29/19 03:36 Troponin I 0.068 NT-Pro-B Natriuret Pep Impressions: Chest X-Ray 04/02/19 00:00 IMPRESSION: Bilateral effusions. Heart enlarged with vascular congestion. SUPPORT DEVICE(S) IN EXPECTED LOCATIONS. All labs, radiographs, diagnostic studies and EKGs were personally reviewed: Yes In addition, reports of radiographic and diagnostic studies were read: Yes Assessment and Plan - Diagnosis (1) Acute respiratory failure with hypoxia and hypercarbia Is this a current diagnosis for this admission?: Yes Plan: He is having some difficulty coughing and deep breathing (2) Aspiration into airway Qualifiers: Encounter type: initial encounter Qualified Code(s): T17.908A - Unspecified foreign body in respiratory tract, part unspecified causing other injury, initial encounter Is this a current diagnosis for this admission?: Yes Plan: Resolved (3) Atrial fibrillation with controlled ventricular response Is this a current diagnosis for this admission?: Yes Plan: Controlled, on heparin. (4) Hypokalemia Is this a current diagnosis for this admission?: Yes Plan: Still low, replace. (5) Acute kidney failure Qualifiers: Acute renal failure type: with acute tubular necrosis Qualified Code(s): N17.0 - Acute kidney failure with tubular necrosis Is this a current diagnosis for this admission?: Yes Plan: Resolved. Plan Summary: Patient has expressed desire to stop interventions. Will have palliative care see later today. Critical Time Critical Time (minutes): 35 Level of Care: ICU Anticipated discharge: Hospice Within: within 48 hours -: 1. The care of a critical patient is a dynamic process. This note is a chemical sales representative synopsis but static in nature. The timeframe for treatments given in order is not necessarily the actual time these treatments may have been done. 2. This patient requires critical care secondary to ongoing requirements for therapy not offered or safe outside the critical care environment. Transfer to a lower level of care will result in altered life or limb morbidity and mortality. 3. Multidisciplinary rounds completed. 4. ABCDE bundle addressed.
[2019-04-04] MEDS: HYDROMORPHONE HCL INJ/PF 2 MG/ML AMPULE IV PRN (16:47)
[2019-04-04 20:00] VITALS: BP 114/63
[2019-04-04] MEDS ORDERED: SCOPOLAMINE HYDROBROMIDE 1.5 MG PATCH.TD72 TD SCH (22:00)
[2019-04-05] MEDS: ALBUTEROL SULFATE 0.083% NEB 2.5 MG/3 ML AMPUL NEB SCH ×5 (00:45→16:22)
[2019-04-05] MEDS: HYDROMORPHONE HCL INJ/PF 2 MG/ML AMPULE IV PRN ×2 (04:12→12:19)
--- NOTE | 2019-04-05 09:09 | PDOC CRITICAL CARE PROG REPORT ---
General Date:: 04/05/19 Hospital Day:: 8 Resuscitation Status: Do Not Resuscitate Medical Power of Gas Distribution Supervisor: Daughters, Events in the past 12 to 24 Hours:: Patient expressed desire to forego aggressive care and be made comfortable. Review of systems relevant to events:: Respiratory. Reason for ICU Addmission:: Acute Hypoxic/Hypercarbic respiratory failure with aspiration of tobacco product. - Medications: Medications reviewed and adjusted accordingly: Yes Vasopressors:: None Sedation:: None. Physical Exam Vital Signs: Temp Pulse Resp BP Pulse Ox 98.5 F 68 18 114/63 98 04/04/19 16:00 04/05/19 08:55 04/05/19 08:12 04/04/19 19:57 04/05/19 08:12 Intake & Output 04/04/19 04/05/19 04/06/19 06:59 06:59 06:59 Intake Total 932 568 Output Total 2250 1870 Balance -1318 -1302 Weight 92.8 kg 92.5 kg Weight/Height Weight 92.5 kg Height 5 ft 7 in General appearance: PRESENT: no acute distress Head exam: PRESENT: atraumatic, normocephalic Eye exam: PRESENT: conjunctiva pink, EOMI, PERRLA. ABSENT: scleral icterus Ear exam: PRESENT: normal external ear exam Mouth exam: PRESENT: moist, tongue midline Respiratory exam: PRESENT: crackles, rhonchi, tachypnea Cardiovascular exam: PRESENT: RRR. ABSENT: diastolic murmur, rubs, systolic murmur GI/Abdominal exam: PRESENT: normal bowel sounds, soft. ABSENT: distended, guarding, mass, organolmegaly, rebound, tenderness Rectal exam: PRESENT: deferred Gentrourinary exam: PRESENT: indwelling catheter Extremities exam: PRESENT: full ROM. ABSENT: calf tenderness, clubbing, pedal edema Musculoskeletal exam: PRESENT: normal inspection Neurological exam: PRESENT: altered Skin exam: PRESENT: dry, intact, warm. ABSENT: cyanosis, rash Laboratory/Radiographs Laboratory Results: 03/31/19 03:21 04/04/19 05:26 03/30/19 05:00 Blood Blood Culture - Final NO GROWTH IN 5 DAYS 03/30/19 04:17 Blood Blood Culture - Final NO GROWTH IN 5 DAYS 03/28/19 03/28/19 03/28/19 11:45 16:55 23:29 Troponin I 0.103 0.078 NT-Pro-B Natriuret Pep 3830 H 03/29/19 03:36 Troponin I 0.068 NT-Pro-B Natriuret Pep Impressions: Chest X-Ray 04/02/19 00:00 IMPRESSION: Bilateral effusions. Heart enlarged with vascular congestion. SUPPORT DEVICE(S) IN EXPECTED LOCATIONS. All labs, radiographs, diagnostic studies and EKGs were personally reviewed: Yes In addition, reports of radiographic and diagnostic studies were read: Yes Assessment and Plan - Diagnosis (1) Acute respiratory failure with hypoxia and hypercarbia Is this a current diagnosis for this admission?: Yes Plan: Patient has actually improved with comfort care measures. (2) Aspiration into airway Qualifiers: Encounter type: initial encounter Qualified Code(s): T17.908A - Unspecified foreign body in respiratory tract, part unspecified causing other injury, initial encounter Is this a current diagnosis for this admission?: Yes Plan: Resolved (3) Atrial fibrillation with controlled ventricular response Is this a current diagnosis for this admission?: Yes Plan: Controlled (4) Hypokalemia Is this a current diagnosis for this admission?: Yes Plan: Slightly low but will forego replacement (5) Acute kidney failure Qualifiers: Acute renal failure type: with acute tubular necrosis Qualified Code(s): N17.0 - Acute kidney failure with tubular necrosis Is this a current diagnosis for this admission?: Yes Plan: Resolved. Plan Summary: Continue with comfort care. Awaiting floor bed. Critical Time Critical Time (minutes): 25 Level of Care: MEDICAL Anticipated discharge: Hospice Within: within 24 hours -: 1. The care of a critical patient is a dynamic process. This note is a roofing sales representative synopsis but static in nature. The timeframe for treatments given in order is not necessarily the actual time these treatments may have been done. 2. This patient requires critical care secondary to ongoing requirements for therapy not offered or safe outside the critical care environment. Transfer to a lower level of care will result in altered life or limb morbidity and mortality. 3. Multidisciplinary rounds completed. 4. ABCDE bundle addressed.
--- NOTE | 2019-04-05 17:22 | PDOC DISCHARGE SUMMARY ---
Impression - Admit/DC Date/PCP Admission Date/Primary Care Provider: 03/28/19 14:36 DANNY FISCHER NP Discharge Date: 04/05/19 - Discharge Diagnosis (1) Acute respiratory failure with hypoxia and hypercarbia Is this a current diagnosis for this admission?: Yes (2) Aspiration into airway Is this a current diagnosis for this admission?: Yes (3) Atrial fibrillation with controlled ventricular response Is this a current diagnosis for this admission?: Yes (4) Hypokalemia Is this a current diagnosis for this admission?: Yes (5) Acute kidney failure Is this a current diagnosis for this admission?: Yes - Assessment Summary: This patient is an 84 yo man who aspirated at home on chewing tobacco and was intubated shortly after arrival in ED due to waxing and waning mental status although he was still maintaining his airway. e was continually tachypneic on the ventilator, and after extubation. His respiratory status was on bipap and high flow until he expressed a desire to stop treatment. He told this to the nursing staff and myself the next day. He was made comfort care and discharged to hospce. - Additional Information Resuscitation Status: Comfort Measures Only Discharge Diet: As Tolerated Discharge Activity: Bedrest Referrals: DANNY FISCHER NP, [employer] [Primary Care Provider] - Follow up as needed Home Medications: Amlodipine/Atorvastatin [Amlodipine-Atorvast 2.5-10 mg] 1 each PO DAILY 03/28/19 Buspirone HCl 15 mg PO BID 03/28/19 Diclofenac Sodium [Voltaren 25 Mg Tablet] 25 mg PO BID 03/28/19 Furosemide [Lasix 40 mg Tablet] 40 mg PO DAILY 03/28/19 Gabapentin [Neurontin] 600 mg PO Q6 03/28/19 Hydrocodone/Acetaminophen [Hydrocodone-Acetamin 10-300 mg] 1 each PO QIDP PRN 03/28/19 Indapamide 1.25 mg PO DAILY 03/28/19 Levofloxacin [Levaquin 750 mg Tablet] 750 mg PO DAILY 03/28/19 Metformin HCl [Metformin HCl ER] 500 mg PO BIDBS 03/28/19 Omeprazole 40 mg PO DAILY 03/28/19 Rosuvastatin Calcium 5 mg PO DAILY 03/28/19 Tramadol HCl [Ultram 50 mg Tablet] 50 mg PO BIDP PRN 03/28/19 History of Present Illiness History of Present Illness: KAEL PAREDES is a 84 year old male Hospital Course Hospital Course: As above Physical Exam Vital Signs: Temp Pulse Resp BP Pulse Ox 98.5 F 73 16 114/63 98 04/04/19 16:00 04/05/19 16:22 04/05/19 16:22 04/04/19 19:57 04/05/19 16:22 Intake & Output 04/04/19 04/05/19 04/06/19 06:59 06:59 06:59 Intake Total 932 568 Output Total 2250 1870 75 Balance -1318 -1302 -75 Weight 92.8 kg 92.5 kg General appearance: PRESENT: no acute distress Head exam: PRESENT: atraumatic, normocephalic Eye exam: PRESENT: conjunctiva pink, EOMI, PERRLA. ABSENT: scleral icterus Ear exam: PRESENT: normal external ear exam Mouth exam: PRESENT: moist, tongue midline Respiratory exam: PRESENT: decreased breath sounds Cardiovascular exam: PRESENT: irregular rhythm GI/Abdominal exam: PRESENT: normal bowel sounds, soft. ABSENT: distended, guarding, mass, organolmegaly, rebound, tenderness Rectal exam: PRESENT: deferred Extremities exam: PRESENT: full ROM. ABSENT: calf tenderness, clubbing, pedal edema Neurological exam: PRESENT: altered, oriented to person Skin exam: PRESENT: dry, intact, warm. ABSENT: cyanosis, rash Results Laboratory Results: WBC 7.1 10^3/uL (4.0-10.5) 03/31/19 03:21 RBC 4.48 10^6/uL (4.35-5.55) 03/31/19 03:21 Hgb 12.5 g/dL (13.5-17.0) L 03/31/19 03:21 Hct 39.1 % (37.9-51.0) 03/31/19 03:21 MCV 87 fl (80-97) 03/31/19 03:21 MCH 27.9 pg (27.0-33.4) 03/31/19 03:21 MCHC 31.9 g/dL (32.0-36.0) L 03/31/19 03:21 RDW 16.6 % (11.5-14.0) H 03/31/19 03:21 Plt Count 137 10^3/uL (150-450) L 03/31/19 03:21 Lymph % (Auto) 10.6 % (13-45) L 03/31/19 03:21 [place] % (Auto) 7.1 % (3-13) 03/31/19 03:21 Eos % (Auto) 0.5 % (0-6) 03/31/19 03:21 Baso % (Auto) 0.2 % (0-2) 03/31/19 03:21 Absolute Neuts (auto) 5.8 10^3/uL (1.7-8.2) 03/31/19 03:21 Absolute Lymphs (auto) 0.8 10^3/uL (0.5-4.7) 03/31/19 03:21 Absolute Monos (auto) 0.5 10^3/uL (0.1-1.4) 03/31/19 03:21 Absolute Eos (auto) 0.0 10^3/uL (0.0-0.6) 03/31/19 03:21 Absolute Basos (auto) 0.0 10^3/uL (0.0-0.2) 03/31/19 03:21 Seg Neutrophils % 81.6 % (42-78) H 03/31/19 03:21 PT 16.8 SEC (11.4-15.4) H 03/28/19 11:45 INR 1.35 03/28/19 11:45 APTT 99.4 SEC (23.5-35.8) H 04/04/19 14:15 Carbonic Acid 1.40 mmol/L (1.05-1.35) H 04/02/19 18:54 HCO3/H2CO3 Ratio 17:1 04/02/19 18:54 ABG pH 7.34 (7.35-7.45) L 04/02/19 18:54 ABG pCO2 46.6 mmHg (35-45) H 04/02/19 18:54 ABG pO2 145.5 mmHg (80-100) H 04/02/19 18:54 ABG HCO3 24.5 mmol/L (20-24) H 04/02/19 18:54 ABG Total CO2 26.0 mmol/L (23-27) 04/02/19 18:54 ABG O2 Saturation 98.7 % (94-98) H 04/02/19 18:54 ABG Base Excess -1.5 mmol/L 04/02/19 18:54 FiO2 3L 04/02/19 18:54 Sodium 143.3 mmol/L (137-145) 04/04/19 05:26 Potassium 3.3 mmol/L (3.6-5.0) L 04/04/19 05:26 Chloride 110 mmol/L (98-107) H 04/04/19 05:26 Carbon Dioxide 27 mmol/L (22-30) 04/04/19 05:26 Anion Gap 6 (5-19) 04/04/19 05:26 BUN 23 mg/dL (7-20) H 04/04/19 05:26 Creatinine 1.04 mg/dL (0.52-1.25) 04/04/19 05:26 Est GFR ( Amer) > 60 (>60) 04/04/19 05:26 Est GFR (MDRD) Non-Af > 60 (>60) 04/04/19 05:26 Glucose 134 mg/dL (75-110) H 04/04/19 05:26 POC Glucose 210 mg/dL (70-110) H 04/04/19 12:50 Lactic Acid 1.9 mmol/L (0.7-2.1) 03/28/19 18:50 Calcium 8.1 mg/dL (8.4-10.2) L 04/04/19 05:26 Phosphorus 3.0 mg/dL (2.5-4.5) 04/02/19 03:50 Magnesium 2.3 mg/dL (1.6-2.3) 04/02/19 03:50 Total Bilirubin 0.8 mg/dL (0.2-1.3) 03/29/19 03:36 Direct Bilirubin 0.4 mg/dL (0.0-0.4) 03/29/19 03:36 Neonat Total Bilirubin Not Reportable 03/29/19 03:36 Neonat Direct Bilirubin Not Reportable 03/29/19 03:36 Neonat Indirect Bili Not Reportable 03/29/19 03:36 AST 15 U/L (17-59) L 03/29/19 03:36 ALT 13 U/L (<50) 03/29/19 03:36 Alkaline Phosphatase 68 U/L (38-126) 03/29/19 03:36 Ammonia < 8.7 umol/L (9-33) L 03/28/19 16:55 Troponin I 0.068 ng/mL 03/29/19 03:36 NT-Pro-B Natriuret Pep 3830 pg/mL (<450) H 03/28/19 11:45 Total Protein 5.3 g/dL (6.3-8.2) L 03/29/19 03:36 Albumin 2.8 g/dL (3.5-5.0) L 03/29/19 03:36 Triglycerides 218 mg/dL (<150) H 03/29/19 03:36 TSH 1.12 uIU/mL (0.47-4.68) 03/28/19 11:44 Free T4 1.51 ng/dL (0.78-2.19) 03/28/19 11:44 Urine Color YELLOW 03/28/19 14:10 Urine Appearance CLEAR 03/28/19 14:10 Urine pH 5.0 (5.0-9.0) 03/28/19 14:10 Ur Specific [place] 1.005 03/28/19 14:10 Urine Protein NEGATIVE mg/dL (NEGATIVE) 03/28/19 14:10 Urine Glucose (UA) NEGATIVE mg/dL (NEGATIVE) 03/28/19 14:10 Urine Ketones NEGATIVE mg/dL (NEGATIVE) 03/28/19 14:10 Urine Blood MODERATE (NEGATIVE) H 03/28/19 14:10 Urine Nitrite (Reflex) NEGATIVE (NEGATIVE) 03/28/19 14:10 Urine Bilirubin NEGATIVE (NEGATIVE) 03/28/19 14:10 Urine Urobilinogen NEGATIVE mg/dL (<2.0) 03/28/19 14:10 Leukocyte Esterase Rfl MODERATE (NEGATIVE) H 03/28/19 14:10 Urine RBC (Auto) 4 /HPF 03/28/19 14:10 U Hyaline Cast (Auto) 1 /LPF 03/28/19 14:10 Urine Bacteria (Auto) TRACE /HPF 03/28/19 14:10 Urine WBC (Reflex) 3 /HPF 03/28/19 14:10 Squamous Epi Cells Auto 1 /HPF 03/28/19 14:10 Urine Mucus (Auto) RARE /LPF 03/28/19 14:10 Urine Ascorbic Acid NEGATIVE (NEGATIVE) 03/28/19 14:10 Fluid Type BRONCHIAL WASH 03/28/19 17:30 Fluid Source LUNG 03/28/19 17:30 Fluid Color STRAW 03/28/19 17:30 Fluid Appearance HAZY 03/28/19 17:30 Fluid Viscosity SLIGHTLY VISCOUS 03/28/19 17:30 Fluid WBC 8 /uL 03/28/19 17:30 Fluid RBC 23 /uL 03/28/19 17:30 Fluid Seg Neutrophils 75 % 03/28/19 17:30 Fluid Lymphocytes 25 % 03/28/19 17:30 Fluid Monocytes 0 % 03/28/19 17:30 Fluid Eosinophils 0 % 03/28/19 17:30 Fluid Basophils 0 % 03/28/19 17:30 Stl C. Difficile GDH Ag POSITIVE (NEGATIVE) 04/02/19 08:45 Stl C.difficile Tox A&B NEGATIVE (NEGATIVE) 04/02/19 08:45 Stl C.difficile Tox PCR NEGATIVE (NEGATIVE) 04/02/19 08:45 Urine Opiates Screen UNCONFIRMED POSITIVE 03/28/19 14:10 Urine Methadone Screen NEGATIVE 03/28/19 14:10 Ur Barbiturates Screen NEGATIVE 03/28/19 14:10 Ur Phencyclidine Scrn NEGATIVE 03/28/19 14:10 Ur Amphetamines Screen NEGATIVE 03/28/19 14:10 U Benzodiazepines Scrn NEGATIVE 03/28/19 14:10 Urine Cocaine Screen NEGATIVE 03/28/19 14:10 U Marijuana (THC) Screen NEGATIVE 03/28/19 14:10 03/28/19 03/28/19 03/28/19 11:45 16:55 23:29 Troponin I 0.103 0.078 NT-Pro-B Natriuret Pep 3830 H 03/29/19 03:36 Troponin I 0.068 NT-Pro-B Natriuret Pep Impressions: Chest X-Ray 03/28/19 00:00 IMPRESSION: Left lower lobe pneumonia. Possible trace left pleural effusion. Aspiration should be considered Chest X-Ray 03/28/19 00:00 IMPRESSION: Tube and catheter placement as described. Cardiomegaly without darci pulmonary edema. Subsegmental atelectasis in the left mid lung. Airspace disease in left lower lobe, pneumonia versus atelectasis. Chest X-Ray 03/29/19 06:00 IMPRESSION: Minimal residual atelectasis in the left midlung field. Small effusions. Support lines and tubes remain in satisfactory position. Chest X-Ray 03/30/19 06:00 IMPRESSION: STABLE APPEARANCE OF THE CHEST. SUPPORT DEVICES UNCHANGED. Chest X-Ray 03/30/19 17:30 IMPRESSION: No change. Chest X-Ray 03/31/19 06:00 IMPRESSION: STABLE APPEARANCE OF THE CHEST. SUPPORT DEVICES UNCHANGED. Chest X-Ray 04/01/19 00:00 IMPRESSION: Improved aeration of the lung bases. Support devices unchanged. Chest X-Ray 04/02/19 00:00 IMPRESSION: Bilateral effusions. Heart enlarged with vascular congestion. SUPPORT DEVICE(S) IN EXPECTED LOCATIONS. Plan Health Concerns: Discharged to hospice. Plan of Treatment: Comfort care Goals: Comfortable end of life Critical Time: 35 Level of Care: MEDICAL Stroke Is this a Stroke Patient?: No Acute Heart Failure - Is this a Heart Failure Patient?: No
== END 2019-04-05 17:03 | disposition hospice, inpatient (51) | DRG 207 ==
LOC: ER 11:32 → EH 14:36 → ICU 15:45
PROVIDERS: ADMIT Internal Medicine Critical Care Medicine; ATTEND Internal Medicine Critical Care Medicine
PROC: 5A1955Z Respiratory Ventilation, Greater than 96 Consecutive Hours (ICD-10-PCS; principal; 2019-03-28)
PROC: 0BH17EZ Insertion of Endotracheal Airway into Trachea, Via Natural or Artificial Opening (ICD-10-PCS; 2019-03-28)
PROC: 02HV33Z Insertion of Infusion Device into Superior Vena Cava, Percutaneous Approach (ICD-10-PCS; 2019-03-28)
PROC: 0BC88ZZ Extirpation of Matter from Left Upper Lobe Bronchus, Via Natural or Artificial Opening Endoscopic (ICD-10-PCS; 2019-03-28)
PROC: 0BC48ZZ Extirpation of Matter from Right Upper Lobe Bronchus, Via Natural or Artificial Opening Endoscopic (ICD-10-PCS; 2019-03-28)
PROC: 0BC78ZZ Extirpation of Matter from Left Main Bronchus, Via Natural or Artificial Opening Endoscopic (ICD-10-PCS; 2019-03-28)
PROC: 0B9G8ZX Drainage of Left Upper Lung Lobe, Via Natural or Artificial Opening Endoscopic, Diagnostic (ICD-10-PCS; 2019-03-28)
PROC: 0B9C8ZX Drainage of Right Upper Lung Lobe, Via Natural or Artificial Opening Endoscopic, Diagnostic (ICD-10-PCS; 2019-03-28)
PROC: 0D9670Z Drainage of Stomach with Drainage Device, Via Natural or Artificial Opening (ICD-10-PCS; 2019-03-28)
DX: T17.590A Other foreign object in bronchus causing asphyxiation, initial encounter (principal); J96.02 Acute respiratory failure with hypercapnia; A41.9 Sepsis, unspecified organism; R65.21 Severe sepsis with septic shock; J96.01 Acute respiratory failure with hypoxia; T83.511A Infection and inflammatory reaction due to indwelling urethral catheter, initial encounter; G93.40 Encephalopathy, unspecified; N17.9 Acute kidney failure, unspecified; N39.0 Urinary tract infection, site not specified; I10 Essential (primary) hypertension; E78.5 Hyperlipidemia, unspecified; I48.0 Paroxysmal atrial fibrillation; K21.9 Gastro-esophageal reflux disease without esophagitis; N40.1 Benign prostatic hyperplasia with lower urinary tract symptoms; I95.9 Hypotension, unspecified; F17.200 Nicotine dependence, unspecified, uncomplicated; Z66 Do not resuscitate; Y84.6 Urinary catheterization as the cause of abnormal reaction of the patient, or of later complication, without mention of misadventure at the time of the procedure; B96.1 Klebsiella pneumoniae [K. pneumoniae] as the cause of diseases classified elsewhere; I87.2 Venous insufficiency (chronic) (peripheral); E86.0 Dehydration; E87.6 Hypokalemia; Z51.5 Encounter for palliative care; E11.622 Type 2 diabetes mellitus with other skin ulcer; L98.499 Non-pressure chronic ulcer of skin of other sites with unspecified severity; Z78.1 Physical restraint status
CPT/HCPCS: 31622; 36415; 36556; 71045; 80048; 80053; 80307; 81001; 82140; 82803; 82962; 83605; 83735; 83880; 84100; 84132; 84439; 84443; 84478; 84484; 85025; 85610; 85730; 87040; 87070; 87077; 87086; 87101; 87150; 87186; 87205; 87252; 87324; 87449; 87486; 87493; 89050; 93005; 93010; 93306; 93925; 94002; 94003; 94640; 94660; 96361; 96374; 99232; 99239; 99291; 99292; J0330; J0696; J1120; J1170; J1644; J1815; J1940; J2020; J2270; J2543; J2704; J3010; J3370; J3480; J3490; J7030; J7060; J7120; J7620; P9041